=== PATIENT | male | born 1945 | race Caucasian/White ===

== ENCOUNTER 2017-03-06 16:18 | Inpatient (IN) | payer MEDICARE, BC ==
[~2017-03-06 16:18] MED LIST: Levofloxacin/Dextrose 5%-Water 750 MG in Premix Bag 1 BAG IV SCH
--- NOTE | 2017-03-06 16:49 | EDM.PDOC ---
ED HPI GENERAL MEDICAL PROBLEM - General Chief Complaint: Respiratory Problem Stated Complaint: RESPIRATORY ISSUES Time Seen by Provider: 03/06/17 16:30 Source of Information: Reports: Patient, Provider, RN Notes Reviewed - History of Present Illness INITIAL COMMENTS - FREE TEXT/NARRATIVE: 72 year old male comes in with cough, generalized weakness, dyspnea, hypoxia, bilat lower lobe pneumonia. He has been coughing for about 3 1/2 weeks, mostly nonprod. He was see at the clinic a short time ago by his regular provider Dr Cheney for the above sx. CXR is reported to show bilat lower lobe pneumonia. He is too ill to be treated at home. Sent here to get started on IV abx and arrange for admission to hospital. He does have hx of Htn. Hx of previous CVA. - Related Data Allergies Allergy/AdvReac Type Severity Reaction Status Date / Time No Known Allergies Allergy Verified 06/02/14 07:33 Home Meds: Home Meds Aspirin [Halfprin] 81 mg PO DAILY 03/06/17 [History] Lisinopril/Hydrochlorothiazide [Lisinopril-Hctz 20-25 mg Tab] 20 - 25 mg PO DAILY 03/06/17 [History] [place]-3 Fatty Acids/Fish Oil [[facility] Fish Oil 1,000 mg Softgel] 1,000 mg PO BID [History] amLODIPine [Norvasc] 5 mg PO DAILY 03/06/17 [History] atorvaSTATin [Lipitor] 40 mg PO ASDIRECTED 03/06/17 [History] ED ROS GENERAL - Review of Systems Review Of Systems: See Below Constitutional: Reports: Chills. Denies: Fever HEENT: Denies: Sinus Problem, Throat Pain Respiratory: Reports: Shortness of Breath, Cough, Sputum (scant) Cardiovascular: Reports: Chest Pain (with coughing) Endocrine: Reports: Fatigue GI/Abdominal: Reports: Decreased Appetite. Denies: Abdominal Pain, Nausea, Vomiting Musculoskeletal: Denies: Leg Pain Skin: Reports: No Symptoms Neurological: Reports: Dizziness ED EXAM, GENERAL - Physical Exam Exam: See Below General Appearance: Alert, Mild Distress, Other (Frequent nonproductive cough) Eye Exam: Bilateral Eye: PERRL Nose: Normal Inspection Throat/Mouth: Normal Inspection, Normal Oropharynx Head: Atraumatic. No: Facial Swelling Neck: Supple, Full Range of Motion. No: Lymphadenopathy (L), Lymphadenopathy (R ) Respiratory/Chest: Respiratory Distress, Rhonchi (Right base). No: Retractions Cardiovascular: Regular Rate, Rhythm GI/Abdominal: Soft, Non-Tender Extremities: Normal Inspection, Normal Range of Motion Neurological: Alert, Oriented, No Motor/Sensory Deficits Skin Exam: Warm, Dry, Normal Color Course - Vital Signs Last Recorded V/S: Last Vital Signs Temp 98.0 F 03/06/17 16:44 Pulse 104 H 03/06/17 16:44 Resp 24 H 03/06/17 16:44 BP 161/86 H 03/06/17 16:44 Pulse Ox 91 L 03/06/17 16:44 - Orders/Labs/Meds Orders: Active Orders 24 hr Category Date Time Status Peripheral IV Care [RC] . DIRECTED Care 03/06/17 17:07 Active CULTURE BLOOD [BC] Stat Lab 03/06/17 17:01 Ordered CULTURE BLOOD [BC] Stat Lab 03/06/17 17:07 Ordered Levofloxacin/Dextrose 5%-Water [Levaquin in D5W 750 MG/ Med 03/06/17 17:07 Active 150 ML] 750 mg Premix Bag 1 bag IV ONETIME Sodium Chloride 0.9% [Saline Flush] Med 03/06/17 17:06 Active 10 ml FLUSH ASDIRECTED PRN Peripheral IV Insertion Adult [OM.PC] Stat Oth 03/06/17 17:07 Ordered Medication Orders Levofloxacin/Dextrose 750 mg/ (Premix) 150 mls @ 100 mls/hr IV ONETIME ONE Stop: 03/06/17 18:36 Last Admin: 03/06/17 17:47 Dose: 100 mls/hr Sodium Chloride (Saline Flush) 10 ml FLUSH ASDIRECTED PRN PRN Reason: Keep Vein Open Last Admin: 03/06/17 17:48 Dose: 10 ml Meds: Medications Generic Name Dose Route Start Last Admin Trade Name Freq PRN Reason Stop Dose Admin Levofloxacin/Dextrose 750 mg/ 150 mls @ 100 mls/hr 03/06/17 17:07 03/06/17 17 :47 Premix IV 03/06/17 18:36 100 mls/hr ONETIME ONE Administration Sodium Chloride 10 ml 03/06/17 17:06 03/06/17 17:48 Saline Flush FLUSH 10 ml ASDIRECTED PRN Administration Keep Vein Open - Re-Assessments/Exams Free Text/Narrative Re-Assessment/Exam: 03/06/17 17:44awaiting 2nd blood culture, order for levaquin 750 mg IV is in. He will be admitted inpatient status. CXR shows primarily R lower perihilar infiltrate. Labs drawn at clinic not repeated at this time. WBC 11,300, 77 % seg, 6 % bands. Creatnine 1.1, BUN 28. Na 137, K+ 3.8, glucose 110. Sats were 87 to 89 % room air, 93 to 95 % with 02 at 2 L NC. Departure - Departure Time of Disposition: 17:45 Disposition: Home, Self-Care 01 Condition: Fair Clinical Impression: Pneumonia Qualifiers: Pneumonia type: due to unspecified organism Laterality: right Lung location: lower lobe of lung Qualified Code(s): J18.1 - Lobar pneumonia, unspecified organism - Discharge Information Referrals: Prudencio Cheney MD [Primary Care Provider] - Forms: ED Department Discharge ED Communication - Discussed Case With (1) Discussed Case With (1): Admitting Provider (Dr Lawrence, decision to admit at about 17:35.) - My Orders Last 24 Hours: My Active Orders 03/06/17 17:01 CULTURE BLOOD [BC] Stat 03/06/17 17:06 Sodium Chloride 0.9% [Saline Flush] 10 ml FLUSH ASDIRECTED PRN 03/06/17 17:07 Peripheral IV Care [RC] . DIRECTED CULTURE BLOOD [BC] Stat Levofloxacin/Dextrose 5%-Water [Levaquin in D5W 750 MG/150 ML] 750 mg Premix Bag 1 bag IV ONETIME Peripheral IV Insertion Adult [OM.PC] Stat - Assessment/Plan Last 24 Hours: My Active Orders 03/06/17 17:01 CULTURE BLOOD [BC] Stat 03/06/17 17:06 Sodium Chloride 0.9% [Saline Flush] 10 ml FLUSH ASDIRECTED PRN 03/06/17 17:07 Peripheral IV Care [RC] . DIRECTED CULTURE BLOOD [BC] Stat Levofloxacin/Dextrose 5%-Water [Levaquin in D5W 750 MG/150 ML] 750 mg Premix Bag 1 bag IV ONETIME Peripheral IV Insertion Adult [OM.PC] Stat
[2017-03-06] MEDS ORDERED: Sodium Chloride 0.9% 10 ML Syringe FLUSH PRN (17:06)
[2017-03-06] MEDS ORDERED: Levofloxacin/Dextrose 5%-Water 750 MG in Premix Bag 1 BAG IV ONE (17:07)
--- NOTE | 2017-03-06 18:23 | PCM.HP ---
H&P History of Present Illness - General Date of Service: 03/06/17 Admit Problem/Dx: Respiratory Distress Source of Information: Patient, Old Records, Provider, RN Notes Reviewed History Limitations: Reports: Respiratory Distress - History of Present Illness Initial Comments - Free Text/Narative: This is a 72-year-old elderly white male with past medical history of hypertension and hyperlipidemia who was initially seen at his primary care's office and was found to have bilateral lower lobe pneumonia on chest x-ray. Patient complains of nonproductive cough associated with dyspnea, hypoxia. and generalized weakness. His symptoms have been going on for 3.5 weeks now. He also reports having poor appetite. Patient was referred to the emergency department for further evaluation. Patient carries no history of heart or lung disease. He is not an active smoker. However he admits to routine alcohol use. His initial labs at the clinic shows a CBC remarkable for WBC of 11.3, hemoglobin of 13.1, hematocrit of 39.5, platelet of 549, segmented neutrophil absolute of 8.7, lymphocyte absolute of 0.7 and 6 Band %. His chemistry is remarkable for glucose of 110 and BUN of 28. No chest x-ray film or report available for review from the clinic. While he was in the emergency department, patient was observed with O2 sats ranging from 87- 89% on room air. He is being admitted for treatment of presumptive bilateral pneumonia. His code status is full. - Related Data Allergies/Adverse Reactions: Allergies Allergy/AdvReac Type Severity Reaction Status Date / Time No Known Allergies Allergy Verified 03/06/17 20:36 Home Medications: Home Meds Aspirin [Halfprin] 81 mg PO DAILY 03/06/17 [History] Lisinopril/Hydrochlorothiazide [Lisinopril-Hctz 20-25 mg Tab] 20 - 25 mg PO DAILY 03/06/17 [History] [place]-3 Fatty Acids/Fish Oil [[facility] Fish Oil 1,000 mg Softgel] 1,000 mg PO BID [History] amLODIPine [Norvasc] 5 mg PO DAILY 03/06/17 [History] atorvaSTATin [Lipitor] 40 mg PO QPM 03/06/17 [History] Past Medical History HEENT History: Reports: Impaired Vision Cardiovascular History: Reports: High Cholesterol, Hypertension Respiratory History: Reports: Pneumonia, Recurrent Musculoskeletal History: Reports: Other (See Below) Other Musculoskeletal History: left foot surgery x 4 - Past Surgical History HEENT Surgical History: Reports: None, Tonsillectomy Social & Family History - Tobacco Use Smoking Status *Q: Former Smoker Used Tobacco, but Quit: Yes Month Tobacco Last Used: 55 years ago - Caffeine Use Caffeine Use: Reports: Coffee - Recreational Drug Use Recreational Drug Use: No H&P Review of Systems - Review of Systems: Review Of Systems: See Below General: Reports: Chills, Fatigue, Decreased Appetite. Denies: Malaise, Weakness HEENT: Reports: No Symptoms. Denies: Ear Pain, Eye Pain, Headaches, Hearing Changes, Rhinitis, Post Nasal Drip, Sinus Congestion, Sore Throat, Visual Changes Pulmonary: Reports: Shortness of Breath, Cough, Sputum Cardiovascular: Reports: Chest Pain (associated with coughing). Denies: Palpitations, Dyspnea on Exertion, Orthopnea, Edema, Lightheadedness, Syncope, Claudication, Blood Pressure Problem Gastrointestinal: Denies: Abdominal Pain, Nausea, Vomiting Genitourinary: Reports: No Symptoms Musculoskeletal: Reports: No Symptoms Skin: Denies: Cyanosis, Jaundice, Mottled, Pallor, Diaphoresis, Bruising, Pruritis, Rash, Erythema, Change in Color Psychiatric: Denies: Confusion, Depression, Anxiety, Agitation, Cravings, Hallucinations, Suicidal Ideation Neurological: Reports: Dizziness. Denies: Headache, Numbness, Paresthesia, Pre- Existing Deficit, Seizure, Syncope, Tingling, Tremors, Trouble Speaking, Difficulty Walking, Weakness, Change in Speech, Gait Disturbance Hematologic/Lymphatic: Reports: No Symptoms Immunologic: Reports: No Symptoms Exam - Exam Exam: See Below - Vital Signs Vital Signs: Last Vital Signs Temp 36.7 C 03/06/17 16:44 Pulse 104 H 03/06/17 16:44 Resp 24 H 03/06/17 16:44 BP 161/86 H 03/06/17 16:44 Pulse Ox 91 L 03/06/17 16:44 Weight: 87.09 kg - Exam General: Alert, Oriented, Cooperative, Mild Distress HEENT: Conjunctiva Clear, EACs Clear, EOMI, Hearing Intact, Mucosa Moist & [place] , Nares Patent, Normal Nasal Septum, Posterior Pharynx Clear, TMs Clear, PERRLA. No: Rhinitis, Scleral Icterus Neck: Supple, Trachea Midline, Full Range of Motion. No: JVD Lungs: Normal Respiratory Effort, Rhonchi Cardiovascular: Regular Rate, Regular Rhythm GI/Abdominal Exam: Normal Bowel Sounds, Soft, Non-Tender, No Organomegaly, No Distention, No Abnormal Bruit, No Mass (Male) Exam: Deferred Rectal (Males) Exam: Deferred Back Exam: Normal Inspection, Decreased Range of Motion Extremities: Normal Inspection, Normal Range of Motion, Non-Tender, No Pedal Edema, Normal Capillary Refill Peripheral Pulses: 2+: Posterior Tibial (L), Posterior Tibial (R), Dorsalis Pedis (L), Dorsalis Pedis (R) Skin: Warm, Dry, Intact Neuro Extensive - Mental Status: Oriented x3, Normal Cognition, Memory Intact Neuro Extensive - Motor, Sensory, Reflexes: CN II-XII Intact, Normal Gait Psychiatric: Alert, Normal Affect, Normal Mood - Patient Data Result Diagrams: 03/06/17 17:30 03/06/17 17:30 *Q Meaningful Use (ADM) - VTE *Q VTE Criteria *Q: - Stroke *Q Stroke Criteria *Q: - AMI *Q AMI Criteria *Q: Problem List Initiated/Reviewed/Updated: Yes Orders Last 24hrs: Medication Orders Levofloxacin/Dextrose 750 mg/ (Premix) 150 mls @ 100 mls/hr IV ONETIME ONE Stop: 03/06/17 18:36 Last Admin: 03/06/17 17:47 Dose: 100 mls/hr Sodium Chloride (Saline Flush) 10 ml FLUSH ASDIRECTED PRN PRN Reason: Keep Vein Open Last Admin: 03/06/17 17:48 Dose: 10 ml Assessment/Plan Comment:: Assessment/Plan: Acute: Probable PNA - Right lower perihilar Infiltrate per ED Provider - No CXR report or film available for review - Recived IV Levaquin 750 mg x1 in ED - RT Care, Supplemental O2, Decongestant/Expectorant - Sputum Cx, Mycoplasma, and Strep Pneumonia Ag - IS and FV as directed - Serial CXR Mild Leukocytosis - WBC is 11.3 with 6% [facility] Clinic labs - CRP is 22 (done here) - Will monitor Mild Transaminitis - Likely from chronic ETOH Use - He was not able to quantify it for me - Monitor levels Thrombocytopenia - 549 in the clinic 503 here - Will monitor Clinical Dehydration - 2/2 poor oral intake - UA spec gravity is suggestive of considerably concentrated urine - IV hydration Chronic: HTN HLD Plan: Admit to Med-Surg Resume Home Meds Routine AM Labs PT/OT/RT SW/CM for d/c planning Additional orders as above Code status: 1
[2017-03-06] MEDS ORDERED: Morphine 2 MG/ML Syringe IVPUSH PRN (18:26)
[2017-03-06] MEDS ORDERED: Polyethylene Glycol 3350 Powder 17 GM Packet PO PRN (18:26)
[2017-03-06] MEDS ORDERED: LORazepam 2 MG/ML MDV IV PRN (18:26)
[2017-03-06] MEDS ORDERED: Ondansetron 4 MG/2 ML SDV IV PRN (18:26)
[2017-03-06] MEDS ORDERED: Temazepam 7.5 MG Cap PO PRN (18:26)
[2017-03-06] MEDS ORDERED: Acetaminophen/HYDROcodone 325-5 MG Tab PO PRN (18:26)
[2017-03-06] MEDS ORDERED: Promethazine 12.5 MG in Sodium Chloride 0.9% 50 ML IV PRN (18:26)
[2017-03-06] MEDS ORDERED: Bisacodyl 5 MG Tab PO PRN (18:26)
[2017-03-06] MEDS ORDERED: Acetaminophen 325 MG Tab PO PRN (18:26)
[2017-03-06] MEDS ORDERED: Docusate Sodium 100 MG Cap PO PRN (18:26)
[2017-03-06] MEDS ORDERED: LORazepam 2 MG/ML MDV IVPUSH PRN (18:33)
[2017-03-06] MEDS ORDERED: hydrALAZINE 20 MG/ML SDV IVPUSH PRN (18:33)
[2017-03-06] MEDS ORDERED: Metoprolol Tartrate 5 MG/5 ML SDV IVPUSH PRN (18:33)
[2017-03-06] MEDS ORDERED: guaiFENesin/Dextromethorphan 100-10 MG/5 ML Soln 5 ML Cup PO PRN (18:35)
[2017-03-06] MEDS ORDERED: Famotidine 20 MG/2 ML SDV IVPUSH ONE (18:36)
[2017-03-06] MEDS ORDERED: Pneumococcal Polyvalent-23 Vaccine 0.5 ML SDV IM ONE (20:57)
[2017-03-06] MEDS ORDERED: Diphtheria,Pertussis(Acell),Tetanus Vaccine 0.5 ML SDV IM ONE (20:57)
[2017-03-07] MEDS ORDERED: Famotidine 20 MG/2 ML SDV IVPUSH ONE (07:00)
[2017-03-07] MEDS ORDERED: Magnesium Oxide 400 MG Tab PO ONE (08:00)
[2017-03-07] MEDS: Rosuvastatin 10 MG Tab PO SCH (08:21)
[2017-03-07] MEDS: amLODIPine 5 MG Tab PO SCH (08:22)
[2017-03-07] MEDS: Aspirin 81 MG Tab.EC PO SCH (08:22)
[2017-03-07] MEDS: Hydrochlorothiazide 25 MG Tab PO SCH (08:22)
[2017-03-07] MEDS: Lisinopril 20 MG Tab PO SCH (08:23)
[2017-03-07] MEDS: Saccharomyces Boulardii (Probiotic) 250 MG Cap PO SCH (08:25)
--- NOTE | 2017-03-07 11:46 | PCM.PN ---
- General Info Date of Service: 03/07/17 Functional Status: Reports: Pain Controlled - Review of Systems General: Reports: Malaise HEENT: Reports: No Symptoms Pulmonary: Reports: Shortness of Breath, Cough. Denies: Sputum Cardiovascular: Reports: No Symptoms Gastrointestinal: Reports: Decreased Appetite, Diarrhea (yellow; occurs after eating). Denies: Nausea, Vomiting Musculoskeletal: Reports: No Symptoms Skin: Reports: No Symptoms Neurological: Reports: No Symptoms Psychiatric: Reports: No Symptoms Systems Review Comment:: He states that he started coughing and having shortness of breath 3 weeks ago. He denies sputum production. Shortly after he had a decreased appetite and diarrhea after he ate. The diarrhea was yellow and not foul smelling. It did not occur if he hadn't eaten. He had increased thirst and drank mostly water and juice. He states he lost 25 lbs in the last 3 weeks. - Patient Data Vitals - Most Recent: Last Vital Signs Temp 95.2 F L 03/07/17 07:34 Pulse 85 03/07/17 07:34 Resp 12 03/07/17 07:34 BP 129/78 03/07/17 08:23 Pulse Ox 92 L 03/07/17 10:30 Weight - Most Recent: 185 lb 12.8 oz I&O - Last 24 Hours: Intake & Output 03/06/17 03/07/17 03/07/17 22:59 06:59 14:59 Intake Total 100 240 Output Total 320 Balance -220 240 Lab Results Last 24 Hours: Laboratory Results - last 24 hr 03/06/17 03/07/17 03/07/17 Range/Units 19:37 06:05 06:05 WBC 8.84 (4.23-9.07) K/mm3 RBC 3.70 L (4.63-6.08) M/mm3 Hgb 10.7 L (13.7-17.5) gm/L Hct 32.6 L (40.1-51.0) % MCV 88.1 (79.0-92.2) fl MCH 28.9 (25.7-32.2) pg MCHC 32.8 (32.2-35.5) g/dl RDW Std Deviation 44.3 H (35.1-43.9) fL Plt Count 478 H (163-337) K/mm3 MPV 9.3 L (9.4-12.3) fl Neut % (Auto) 72.6 H (34.0-67.9) % Lymph % (Auto) 14.7 L (21.8-53.1) % [place] % (Auto) 7.1 (5.3-12.2) % Eos % (Auto) 4.4 (0.8-7.0) Baso % (Auto) 0.1 (0.1-1.2) % Neut # (Auto) 6.41 H (1.78-5.38) K/mm3 Lymph # (Auto) 1.30 L (1.32-3.57) K/mm3 [place] # (Auto) 0.63 (0.30-0.82) K/mm3 Eos # (Auto) 0.39 (0.04-0.54) K/mm3 Baso # (Auto) 0.01 (0.01-0.08) K/mm3 Magnesium 1.7 L (1.8-2.4) mg/dl GGT 139 H (15-85) U/L C-Reactive Protein 17.0 H* (<1.0) mg/dL Urine Color Dark yellow (Yellow) Urine Appearance Clear (Clear) Urine pH 5.5 (5.0-8.0) Ur Specific [place] > or = 1.030 (1.005-1.030) Urine Protein 1+ H (Negative) Urine Glucose (UA) Negative (Negative) Urine Ketones Negative (Negative) Urine Occult Blood Negative (Negative) Urine Nitrite Negative (Negative) Urine Bilirubin 1+ H (Negative) Urine Urobilinogen 1.0 (0.2-1.0) Ur Leukocyte Esterase Negative (Negative) Urine RBC 0-5 (0-5) /hpf Urine WBC 0-5 (0-5) /hpf Ur Epithelial Cells 0-5 (0-5) /hpf Urine Bacteria Moderate H (FEW) /hpf Urine Mucus Moderate H (FEW) /hpf Dru Results Last 24 Hours: Microbiology 03/06/17 21:47 Influenza Type A Antigen Screen - Final Nasal, Right NEGATIVE INFLUENZA A VIRUS AG Influenza Type B Antigen Screen - Final NEGATIVE INFLUENZA B VIRUS AG Med Orders - Current: Current Medications Acetaminophen (Tylenol) 650 mg PO Q4H PRN PRN Reason: Pain (Mild 1-3)/fever Hydrocodone Bitart/Acetaminophen ([place] 325-5 Mg) 1 tab PO Q4H PRN PRN Reason: Pain (moderate 4-6) Albuterol/Ipratropium (Duoneb 3.0-0.5 Mg/3 Ml) 3 ml NEB Q4H PRN PRN Reason: Shortness Of Breath/wheezing Amlodipine Besylate (Norvasc) 5 mg PO DAILY [facility] Last Admin: 03/07/17 08:22 Dose: 5 mg Aspirin (Halfprin) 81 mg PO DAILY [facility] Last Admin: 03/07/17 08:22 Dose: 81 mg Bisacodyl (Dulcolax) 5 mg PO DAILY PRN PRN Reason: Constipation Docusate Sodium (Colace) 100 mg PO BID PRN PRN Reason: Constipation Famotidine (Pepcid) 20 mg PO BID [facility] Guaifenesin/Phenylephrine HCl (Robitussin Dm) 10 ml PO Q4H PRN PRN Reason: Cough Last Admin: 03/06/17 19:26 Dose: 10 ml Hydralazine HCl (Apresoline) 20 mg IVPUSH Q4H PRN PRN Reason: Hypertension Hydrochlorothiazide (Hydrochlorothiazide) 25 mg PO DAILY [facility] Last Admin: 03/07/17 08:22 Dose: 25 mg Promethazine HCl 12.5 mg/ (Sodium Chloride) 50.5 mls @ 100 mls/hr IV Q6H PRN PRN Reason: Nausea/Vomiting Levofloxacin/Dextrose 750 mg/ (Premix) 150 mls @ 100 mls/hr IV Q24H [facility] Lisinopril (Prinivil) 20 mg PO DAILY [facility] Last Admin: 03/07/17 08:23 Dose: 20 mg Lorazepam (Ativan) 0.5 mg IV Q6H PRN PRN Reason: Anxiety Lorazepam (Ativan) 2 mg IVPUSH Q4H PRN PRN Reason: Seizures Magnesium Sulfate (Pharmacy To Dose - Magnesium Replacement) 0 dose .XX ASDIRECTED PRN PRN Reason: RX TO WATCH MAG LEVELS Metoprolol Tartrate (Lopressor) 5 mg IVPUSH Q4H PRN PRN Reason: Tachycardia Morphine Sulfate (Morphine) 1 mg IVPUSH Q4H PRN PRN Reason: Other Stop: 03/07/17 18:28 Ondansetron HCl (Zofran) 4 mg IV Q6H PRN PRN Reason: Nausea/Vomiting Polyethylene Glycol (Miralax) 17 gm PO DAILY PRN PRN Reason: Constipation Potassium Chloride (Pharmacy To Dose - Potassium Replacement) 0 dose .XX ASDIRECTED PRN PRN Reason: RX TO WATCH K LEVELS Rosuvastatin Calcium (Crestor) 10 mg PO DAILY [facility] Last Admin: 03/07/17 08:21 Dose: 10 mg Saccharomyces Boulardii (Florastor) 500 mg PO DAILY [facility] Last Admin: 03/07/17 08:25 Dose: 500 mg Senna/Docusate Sodium (Senna Plus) 1 tab PO BID PRN PRN Reason: Constipation Sodium Chloride (Saline Flush) 10 ml FLUSH ASDIRECTED PRN PRN Reason: Keep Vein Open Last Admin: 03/06/17 17:48 Dose: 10 ml Temazepam (Restoril) 7.5 mg PO BEDTIME PRN PRN Reason: Sleep Discontinued Medications Diphtheria/Tetanus/Acell Pertussis (Adacel) 0.5 ml IM .ONCE ONE Stop: 03/06/17 20:58 Famotidine (Pepcid) 20 mg IVPUSH DAILY ONE Stop: 03/07/17 07:01 Last Admin: 03/07/17 06:54 Dose: 20 mg Famotidine (Pepcid) 20 mg IVPUSH ONETIME ONE Stop: 03/06/17 18:37 Last Admin: 03/06/17 19:26 Dose: 20 mg Levofloxacin/Dextrose 750 mg/ (Premix) 150 mls @ 100 mls/hr IV ONETIME ONE Stop: 03/06/17 18:36 Last Admin: 03/06/17 17:47 Dose: 100 mls/hr Levofloxacin/Dextrose 750 mg/ (Premix) 150 mls @ 100 mls/hr IV Q24H [facility] Last Admin: 03/06/17 22:32 Dose: Not Given Magnesium Oxide (Magnesium Oxide) 800 mg PO ONETIME ONE Stop: 03/07/17 08:01 Last Admin: 03/07/17 08:21 Dose: 800 mg Pneumococcal Polyvalent Vaccine (Pneumovax 23) 0.5 ml IM .ONCE ONE Stop: 03/06/17 20:58 - Exam Quality Assessment: Supplemental Oxygen General: Alert, Oriented, Cooperative HEENT: Pupils Equal, Pupils Reactive, EOMI, Mucous Membr. Moist/[place] Neck: Supple Lungs: Crackles (mild crackles in lower lobes bilaterally) Cardiovascular: Regular Rate, Regular Rhythm GI/Abdominal Exam: Normal Bowel Sounds, Soft, Non-Tender, No Organomegaly, No Distention, No Abnormal Bruit, No Mass (Male) Exam: Deferred Extremities: Normal Inspection, Normal Range of Motion, Non-Tender, No Pedal Edema, Normal Capillary Refill Skin: Warm, Dry, Intact Neurological: No New Focal Deficit Psy/Mental Status: Alert, Normal Affect, Normal Mood Physical Findings Comments:: He is coughing during the exam. His lungs have mild crackles bilaterally in lower lobes. His breathing seems mildly labored. He is able to speak without being short of breath. Abdominal exam was normal. - Problem List Review Problem List Initiated/Reviewed/Updated: Yes - Assessment Assessment:: 1) Pneumonia bilaterally 2) Diarrhea for 3 weeks 3) Self reported weight loss 4) Transaminitis probably secondary to ETOH use - Plan Plan:: Plan: Continue on levofloxacin for pneumonia Collect sputum sample to test for organism and susceptibility Collect stool sample to test for organisms Encourage oral intake of fluids Routine care
--- NOTE | 2017-03-07 14:34 | PCM.PN ---
- General Info Date of Service: 03/07/17 Admission Dx/Problem (Free Text): Respiratory Distress Subjective Update: Follow Up Functional Status: Reports: Pain Controlled, Tolerating Diet, Ambulating, Urinating - Review of Systems General: Denies: Fever, Weakness, Fatigue, Malaise, Chills HEENT: Reports: No Symptoms Pulmonary: Reports: Cough. Denies: Shortness of Breath, Sputum Cardiovascular: Denies: Chest Pain, Dyspnea on Exertion Gastrointestinal: Denies: Abdominal Pain, Nausea, Vomiting Genitourinary: Reports: No Symptoms Musculoskeletal: Reports: No Symptoms Skin: Denies: Rash Neurological: Denies: Confusion, Difficulty Walking, Weakness, Gait Disturbance Psychiatric: Denies: No Symptoms, Depression, Anxiety, Hallucinations Systems Review Comment:: No overnight or acute issues. He feel much better this am. He is still not able to cough. His AM labs looks better. Leukocytosis resolved and CPR is down from 17 to 22. UA and Influenza screening are both negative. - Patient Data Vitals - Most Recent: Last Vital Signs Temp 36.1 C 03/07/17 12:02 Pulse 82 03/07/17 12:02 Resp 20 03/07/17 12:02 BP 102/48 L 03/07/17 12:02 Pulse Ox 94 L 03/07/17 12:02 Weight - Most Recent: 84.277 kg I&O - Last 24 Hours: Intake & Output 03/06/17 03/07/17 03/07/17 22:59 06:59 14:59 Intake Total 100 240 Output Total 320 Balance -220 240 Lab Results Last 24 Hours: Laboratory Results - last 24 hr 03/06/17 03/07/17 03/07/17 Range/Units 19:37 06:05 06:05 WBC 8.84 (4.23-9.07) K/mm3 RBC 3.70 L (4.63-6.08) M/mm3 Hgb 10.7 L (13.7-17.5) gm/L Hct 32.6 L (40.1-51.0) % MCV 88.1 (79.0-92.2) fl MCH 28.9 (25.7-32.2) pg MCHC 32.8 (32.2-35.5) g/dl RDW Std Deviation 44.3 H (35.1-43.9) fL Plt Count 478 H (163-337) K/mm3 MPV 9.3 L (9.4-12.3) fl Neut % (Auto) 72.6 H (34.0-67.9) % Lymph % (Auto) 14.7 L (21.8-53.1) % Reeves % (Auto) 7.1 (5.3-12.2) % Eos % (Auto) 4.4 (0.8-7.0) Baso % (Auto) 0.1 (0.1-1.2) % Neut # (Auto) 6.41 H (1.78-5.38) K/mm3 Lymph # (Auto) 1.30 L (1.32-3.57) K/mm3 Reeves # (Auto) 0.63 (0.30-0.82) K/mm3 Eos # (Auto) 0.39 (0.04-0.54) K/mm3 Baso # (Auto) 0.01 (0.01-0.08) K/mm3 Magnesium 1.7 L (1.8-2.4) mg/dl GGT 139 H (15-85) U/L C-Reactive Protein 17.0 H* (<1.0) mg/dL Urine Color Dark yellow (Yellow) Urine Appearance Clear (Clear) Urine pH 5.5 (5.0-8.0) Ur Specific [place] > or = 1.030 (1.005-1.030) Urine Protein 1+ H (Negative) Urine Glucose (UA) Negative (Negative) Urine Ketones Negative (Negative) Urine Occult Blood Negative (Negative) Urine Nitrite Negative (Negative) Urine Bilirubin 1+ H (Negative) Urine Urobilinogen 1.0 (0.2-1.0) Ur Leukocyte Esterase Negative (Negative) Urine RBC 0-5 (0-5) /hpf Urine WBC 0-5 (0-5) /hpf Ur Epithelial Cells 0-5 (0-5) /hpf Urine Bacteria Moderate H (FEW) /hpf Urine Mucus Moderate H (FEW) /hpf Dru Results Last 24 Hours: Microbiology 03/06/17 18:30 Urine Culture - Preliminary Urine, Voided 03/06/17 21:47 Influenza Type A Antigen Screen - Final Nasal, Right NEGATIVE INFLUENZA A VIRUS AG Influenza Type B Antigen Screen - Final NEGATIVE INFLUENZA B VIRUS AG Med Orders - Current: Current Medications Acetaminophen (Tylenol) 650 mg PO Q4H PRN PRN Reason: Pain (Mild 1-3)/fever Hydrocodone Bitart/Acetaminophen ([place] 325-5 Mg) 1 tab PO Q4H PRN PRN Reason: Pain (moderate 4-6) Albuterol/Ipratropium (Duoneb 3.0-0.5 Mg/3 Ml) 3 ml NEB Q4H PRN PRN Reason: Shortness Of Breath/wheezing Amlodipine Besylate (Norvasc) 5 mg PO DAILY [facility] Last Admin: 03/07/17 08:22 Dose: 5 mg Aspirin (Halfprin) 81 mg PO DAILY [facility] Last Admin: 03/07/17 08:22 Dose: 81 mg Bisacodyl (Dulcolax) 5 mg PO DAILY PRN PRN Reason: Constipation Docusate Sodium (Colace) 100 mg PO BID PRN PRN Reason: Constipation Famotidine (Pepcid) 20 mg PO BID [facility] Guaifenesin/Phenylephrine HCl (Robitussin Dm) 10 ml PO Q4H PRN PRN Reason: Cough Last Admin: 03/06/17 19:26 Dose: 10 ml Hydralazine HCl (Apresoline) 20 mg IVPUSH Q4H PRN PRN Reason: Hypertension Hydrochlorothiazide (Hydrochlorothiazide) 25 mg PO DAILY [facility] Last Admin: 03/07/17 08:22 Dose: 25 mg Promethazine HCl 12.5 mg/ (Sodium Chloride) 50.5 mls @ 100 mls/hr IV Q6H PRN PRN Reason: Nausea/Vomiting Levofloxacin/Dextrose 750 mg/ (Premix) 150 mls @ 100 mls/hr IV Q24H [facility] Lisinopril (Prinivil) 20 mg PO DAILY [facility] Last Admin: 03/07/17 08:23 Dose: 20 mg Lorazepam (Ativan) 0.5 mg IV Q6H PRN PRN Reason: Anxiety Lorazepam (Ativan) 2 mg IVPUSH Q4H PRN PRN Reason: Seizures Magnesium Sulfate (Pharmacy To Dose - Magnesium Replacement) 0 dose .XX ASDIRECTED PRN PRN Reason: RX TO WATCH MAG LEVELS Metoprolol Tartrate (Lopressor) 5 mg IVPUSH Q4H PRN PRN Reason: Tachycardia Morphine Sulfate (Morphine) 1 mg IVPUSH Q4H PRN PRN Reason: Other Stop: 03/07/17 18:28 Ondansetron HCl (Zofran) 4 mg IV Q6H PRN PRN Reason: Nausea/Vomiting Polyethylene Glycol (Miralax) 17 gm PO DAILY PRN PRN Reason: Constipation Potassium Chloride (Pharmacy To Dose - Potassium Replacement) 0 dose .XX ASDIRECTED PRN PRN Reason: RX TO WATCH K LEVELS Rosuvastatin Calcium (Crestor) 10 mg PO DAILY [facility] Last Admin: 03/07/17 08:21 Dose: 10 mg Saccharomyces Boulardii (Florastor) 500 mg PO DAILY [facility] Last Admin: 03/07/17 08:25 Dose: 500 mg Senna/Docusate Sodium (Senna Plus) 1 tab PO BID PRN PRN Reason: Constipation Sodium Chloride (Saline Flush) 10 ml FLUSH ASDIRECTED PRN PRN Reason: Keep Vein Open Last Admin: 03/06/17 17:48 Dose: 10 ml Temazepam (Restoril) 7.5 mg PO BEDTIME PRN PRN Reason: Sleep Discontinued Medications Diphtheria/Tetanus/Acell Pertussis (Adacel) 0.5 ml IM .ONCE ONE Stop: 03/06/17 20:58 Famotidine (Pepcid) 20 mg IVPUSH DAILY ONE Stop: 03/07/17 07:01 Last Admin: 03/07/17 06:54 Dose: 20 mg Famotidine (Pepcid) 20 mg IVPUSH ONETIME ONE Stop: 03/06/17 18:37 Last Admin: 03/06/17 19:26 Dose: 20 mg Levofloxacin/Dextrose 750 mg/ (Premix) 150 mls @ 100 mls/hr IV ONETIME ONE Stop: 03/06/17 18:36 Last Admin: 03/06/17 17:47 Dose: 100 mls/hr Levofloxacin/Dextrose 750 mg/ (Premix) 150 mls @ 100 mls/hr IV Q24H [facility] Last Admin: 03/06/17 22:32 Dose: Not Given Magnesium Oxide (Magnesium Oxide) 800 mg PO ONETIME ONE Stop: 03/07/17 08:01 Last Admin: 03/07/17 08:21 Dose: 800 mg Pneumococcal Polyvalent Vaccine (Pneumovax 23) 0.5 ml IM .ONCE ONE Stop: 03/06/17 20:58 - Exam Quality Assessment: No: Supplemental Oxygen General: Alert, Oriented, Cooperative, No Acute Distress HEENT: Pupils Equal, Pupils Reactive, EOMI, Mucous Membr. Moist/[place] Neck: Supple, Trachea Midline, No JVD Lungs: Clear to Auscultation, Normal Respiratory Effort Cardiovascular: Regular Rate, Regular Rhythm GI/Abdominal Exam: Normal Bowel Sounds, Soft, Non-Tender, No Organomegaly, No Distention, No Abnormal Bruit, No Mass (Male) Exam: Deferred Back Exam: Normal Inspection, Decreased Range of Motion Extremities: Normal Inspection, Normal Range of Motion, Non-Tender, No Pedal Edema, Normal Capillary Refill Peripheral Pulses: 2+: Dorsalis Pedis (L), Dorsalis Pedis (R) Skin: Warm, Intact Wound/Incisions: Healing Well Neurological: No New Focal Deficit Psy/Mental Status: Alert, Normal Affect, Normal Mood - Problem List Review Problem List Initiated/Reviewed/Updated: Yes - My Orders Last 24 Hours: My Active Orders 03/06/17 18:26 Height and Weight [RC] 04 Oxygen Therapy [RC] PRN Up With Assistance [RC] QSHIFT Up ad [place] [RC] QSHIFT VTE/DVT Education [RC] 10,22 Acetaminophen [Tylenol] 650 mg PO Q4H PRN Acetaminophen/HYDROcodone [[place] 325-5 MG] 1 tab PO Q4H PRN Albuterol/Ipratropium [DuoNeb 3.0-0.5 MG/3 ML] 3 ml NEB Q4H PRN Bisacodyl [Dulcolax] 5 mg PO DAILY PRN Docusate Sodium [Colace] 100 mg PO BID PRN Docusate Sodium/Sennosides [Senna Plus] 1 tab PO BID PRN LORazepam [Ativan] 0.5 mg IV Q6H PRN Morphine 1 mg IVPUSH Q4H PRN Ondansetron [Zofran] 4 mg IV Q6H PRN Polyethylene Glycol 3350 [MiraLAX] 17 gm PO DAILY PRN Promethazine [Phenergan] 12.5 mg Sodium Chloride 0.9% [Normal Saline] 50 ml IV Q6H Temazepam [Restoril] 7.5 mg PO BEDTIME PRN Resuscitation Status Routine 03/06/17 18:27 Intake and Output [RC] 04,16 Pulse Oximetry [RC] PRN Sequential Compression Device [OM.PC] Per Unit Routine 03/06/17 18:28 Antiembolic Devices [RC] 10,03/06/17 18:30 RT Aerosol Therapy [RC] .PRN Consult to Case Management [CONS] Routine Consult to Dredge Pipeman [CONS] Routine Consult to Spiritual Care [CONS] Routine OT Evaluation and Treatment [CONS] Routine PT Evaluation and Treatment [CONS] Routine Respiratory Care Assess and Treatment [CONS] Routine CULTURE URINE [RM] Stat 03/06/17 18:33 LORazepam [Ativan] 2 mg IVPUSH Q4H PRN Metoprolol Tartrate [Lopressor] 5 mg IVPUSH Q4H PRN hydrALAZINE [Apresoline] 20 mg IVPUSH Q4H PRN 03/06/17 18:34 CULTURE SPUTUM + SMEAR [RM] Stat 03/06/17 18:35 Dextromethorphan/guaiFENesin [Robitussin DM] 10 ml PO Q4H PRN 03/06/17 18:37 Incentive Spirometry [RT Incentive Spirometry] [RC] ASDIRECTED 03/06/17 18:45 Magnesium Rep Pharmacy to Dose [Pharmacy to Dose - Magnesium Replacement] 0 dose .XX ASDIRECTED PRN Potassium Rep Pharmacy to Dose [Pharmacy to Dose - Potassium Replacement] 0 dose .XX ASDIRECTED PRN 03/06/17 19:30 STREP PNEUMONIAE ANTIGEN [MREF] Stat 03/06/17 20:57 Vaccines to be Administered [RC] PER UNIT ROUTINE 03/06/17 Dinner Regular Diet [DIET] 03/07/17 09:00 Aspirin [Halfprin] 81 mg PO DAILY Hydrochlorothiazide 25 mg PO DAILY Lisinopril [Prinivil] 20 mg PO DAILY Rosuvastatin [Crestor] 10 mg PO DAILY Saccharomyces Boulardii [Florastor] 500 mg PO DAILY amLODIPine [Norvasc] 5 mg PO DAILY 03/07/17 14:02 Flutter Valve Therapy [RT Chest Physiotherapy] [RC] ASDIRECTED 03/07/17 17:00 Levofloxacin/Dextrose 5%-Water [Levaquin in D5W 750 MG/150 ML] 750 mg Premix Bag 1 bag IV Q24H 03/07/17 21:00 Famotidine [Pepcid] 20 mg PO BID 03/08/17 05:11 Chest 2V [CR] AM C-REACTIVE PROTEIN [CHEM] AM CBC WITH AUTO DIFF [HEME] AM MAGNESIUM [CHEM] AM 03/09/17 05:11 C-REACTIVE PROTEIN [CHEM] AM CBC WITH AUTO DIFF [HEME] AM MAGNESIUM [CHEM] AM 03/10/17 05:11 C-REACTIVE PROTEIN [CHEM] AM CBC WITH AUTO DIFF [HEME] AM MAGNESIUM [CHEM] AM - Assessment Assessment:: Assessment/Plan: Acute: Bibasilar PNA - Right lower perihilar Infiltrate per ED Provider - CXR report from the clinic reads: Bilateral lower lobe pneumonia - Continue IV Levaquin 750 mg x1 in ED - RT Care, Supplemental O2, Decongestant/Expectorant-adjusted - Sputum Cx, and Strep Pneumonia Ag-pending - Mycoplasma Ag-negative - IS and FV as directed - Follow CXR in AM Mild Transaminitis - Likely from chronic ETOH Use - He was not able to quantify it for me - Follow up level in AM Thrombocytopenia, Improving - 549 in the clinic 503--> 478 now - Will monitor Hypomagnesemia - Mg 1.7 - Inadequate intake - Pharmacy to replete and monitor Weight Loss - Varying degree of weight loss - Told me 5 lbs in 3 weeks, told dietitian 6 lbs weight loss, told nursing 10 -15 lbs and told Med-student 25 lbs - Defer additional work up outpatient Resolved: Clinical Dehydration - 2/2 poor oral intake - UA spec gravity is suggestive of considerably concentrated urine - IV hydration Mild Leukocytosis - WBC is 11.3 with 6% [facility] labs - CRP is 22 (done here) - Will monitor Chronic: HTN HLD Stroke - Plan Plan:: Plan: He looks much better Resume Home Meds Routine AM Labs Continue PT/OT/RT FV as directed Honey and lemon tea or drink Mucinex 1200 mg po BID, first dose now Tessalon Perles 200 mg po BID, first dose now / for d/c planning Additional orders as above Code status: 1
[2017-03-07] MEDS ORDERED: guaiFENesin 600 MG Tab.ER PO ONE (16:24)
[2017-03-07] MEDS ORDERED: Benzonatate 100 MG Cap PO ONE (16:24)
[2017-03-07] MEDS: Levofloxacin/Dextrose 5%-Water 750 MG in Premix Bag 1 BAG IV SCH (18:03)
[2017-03-07] MEDS: Benzonatate 100 MG Cap PO SCH ×2 (18:57→20:03)
[2017-03-07] MEDS: Famotidine 20 MG Tab PO SCH (20:03)
[2017-03-07] MEDS: guaiFENesin 600 MG Tab.ER PO SCH (20:03)
[2017-03-08] MEDS ORDERED: Codeine/guaiFENesin 100-10 MG/5 ML Syrup 5 ML Cup PO ONE (07:15)
[2017-03-08] MEDS: Hydrochlorothiazide 25 MG Tab PO SCH (08:39)
[2017-03-08] MEDS: Aspirin 81 MG Tab.EC PO SCH (08:39)
[2017-03-08] MEDS: Rosuvastatin 10 MG Tab PO SCH (08:39)
[2017-03-08] MEDS: Saccharomyces Boulardii (Probiotic) 250 MG Cap PO SCH (08:39)
[2017-03-08] MEDS: amLODIPine 5 MG Tab PO SCH (08:40)
[2017-03-08] MEDS: Famotidine 20 MG Tab PO SCH ×2 (08:40→20:52)
[2017-03-08] MEDS: Lisinopril 20 MG Tab PO SCH (08:40)
[2017-03-08] MEDS: guaiFENesin 600 MG Tab.ER PO SCH ×2 (08:40→20:53)
[2017-03-08] MEDS: Benzonatate 100 MG Cap PO SCH ×2 (08:41→20:53)
--- NOTE | 2017-03-08 10:56 | CR ---
Chest: Two views of the chest are obtained. Consolidation is seen within portions of the right upper and right lower lobe. Left perihilar markings are slightly increased. Heart size and mediastinum are within normal limits. Bony structures appear within normal limits for the patient's age. Impression: 1. Mild left-sided bronchitis with right upper and right lower lobe pneumonia. Diagnostic code #3
[2017-03-08] MEDS: Albuterol/Ipratropium 3.0-0.5 MG/3 ML Neb Soln NEB PRN ×2 (14:14→20:57)
--- NOTE | 2017-03-08 14:50 | PCM.PN ---
- General Info Date of Service: 03/08/17 Admission Dx/Problem (Free Text): Respiratory Distress Subjective Update: Follow Up Functional Status: Reports: Pain Controlled, Tolerating Diet, Ambulating, Urinating, Incentive Spirometry. Denies: New Symptoms - Review of Systems General: Reports: No Symptoms. Denies: Fever, Weakness, Malaise, Chills HEENT: Reports: No Symptoms Pulmonary: Reports: Cough, Sputum, Wheezing. Denies: Shortness of Breath, Pleuritic Chest Pain Cardiovascular: Reports: No Symptoms Gastrointestinal: Reports: No Symptoms Genitourinary: Reports: No Symptoms Musculoskeletal: Reports: No Symptoms Skin: Reports: No Symptoms Neurological: Reports: No Symptoms Psychiatric: Reports: No Symptoms Systems Review Comment:: Patient reports his only complaint is his cough. He reports feeling like there is more congestion however he is unable to cough it up. Discussed with patient how this is often a sign of improvement as the congestion is loosening. His CRP is trending downward. He does have a slightly elevated white count today. He reports using incentive spirometry and Acapella. He states the Acapella seems to really help. - Patient Data Vitals - Most Recent: Last Vital Signs Temp 98.4 F 03/08/17 11:50 Pulse 88 03/08/17 11:52 Resp 18 03/08/17 11:50 BP 104/59 L 03/08/17 11:52 Pulse Ox 90 L 03/08/17 14:14 Weight - Most Recent: 186 lb 6.4 oz I&O - Last 24 Hours: Intake & Output 03/07/17 03/08/17 03/08/17 22:59 06:59 14:59 Intake Total 860 375 600 Output Total 850 350 Balance 10 25 600 Lab Results Last 24 Hours: Laboratory Results - last 24 hr 03/08/17 03/08/17 Range/Units 05:53 05:53 WBC 9.45 H (4.23-9.07) K/mm3 RBC 3.90 L (4.63-6.08) M/mm3 Hgb 11.4 L (13.7-17.5) gm/L Hct 34.6 L (40.1-51.0) % MCV 88.7 (79.0-92.2) fl MCH 29.2 (25.7-32.2) pg MCHC 32.9 (32.2-35.5) g/dl RDW Std Deviation 44.7 H (35.1-43.9) fL Plt Count 443 H (163-337) K/mm3 MPV 9.7 (9.4-12.3) fl Neut % (Auto) 72.5 H (34.0-67.9) % Lymph % (Auto) 13.9 L (21.8-53.1) % [place] % (Auto) 7.7 (5.3-12.2) % Eos % (Auto) 4.3 (0.8-7.0) Baso % (Auto) 0.2 (0.1-1.2) % Neut # (Auto) 6.85 H (1.78-5.38) K/mm3 Lymph # (Auto) 1.31 L (1.32-3.57) K/mm3 [place] # (Auto) 0.73 (0.30-0.82) K/mm3 Eos # (Auto) 0.41 (0.04-0.54) K/mm3 Baso # (Auto) 0.02 (0.01-0.08) K/mm3 Manual Slide Review Normal smear Sodium 136 (136-145) mEq/L Potassium 4.1 (3.5-5.1) mEq/L Chloride 101 (98-107) mEq/L Carbon Dioxide 25 (21-32) mEq/L Anion Gap 14.1 (5-15) BUN 31 H (7-18) mg/dL Creatinine 1.1 (0.7-1.3) mg/dL Est Cr Clr Drug Dosing 64.68 mL/min Estimated GFR (MDRD) > 60 (>60) mL/min BUN/Creatinine Ratio 28.2 H (14-18) Glucose 110 (80-115) mg/dL Calcium 9.0 (8.5-10.1) mg/dL Magnesium 1.8 (1.8-2.4) mg/dl Total Bilirubin 0.3 (0.2-1.0) mg/dL AST 52 H (15-37) U/L ALT 87 H (16-63) U/L Alkaline Phosphatase 219 H (46-116) U/L C-Reactive Protein 12.3 H* (<1.0) mg/dL Total Protein 6.6 (6.4-8.2) g/dl Albumin 1.8 L (3.4-5.0) g/dl Globulin 4.8 gm/dL Albumin/Globulin Ratio 0.4 L (1-2) Dru Results Last 24 Hours: Microbiology 03/06/17 18:30 Urine Culture - Final Urine, Voided NO GROWTH AFTER 2 DAYS 03/07/17 02:50 Streptococcus pneumoniae Antigen (M - Final Urine - Ureter, Unspecified Med Orders - Current: Current Medications Acetaminophen (Tylenol) 650 mg PO Q4H PRN PRN Reason: Pain (Mild 1-3)/fever Hydrocodone Bitart/Acetaminophen ([place] 325-5 Mg) 1 tab PO Q4H PRN PRN Reason: Pain (moderate 4-6) Albuterol/Ipratropium (Duoneb 3.0-0.5 Mg/3 Ml) 3 ml NEB Q4H PRN PRN Reason: Shortness Of Breath/wheezing Last Admin: 03/08/17 14:14 Dose: 3 ml Amlodipine Besylate (Norvasc) 5 mg PO DAILY ON [facility] Last Admin: 03/08/17 08:40 Dose: 5 mg Aspirin (Halfprin) 81 mg PO DAILY ON [facility] Last Admin: 03/08/17 08:39 Dose: 81 mg Benzonatate (Tessalon Perles) 200 mg PO BID [facility] Last Admin: 03/08/17 08:41 Dose: 200 mg Bisacodyl (Dulcolax) 5 mg PO DAILY PRN PRN Reason: Constipation Docusate Sodium (Colace) 100 mg PO BID PRN PRN Reason: Constipation Famotidine (Pepcid) 20 mg PO BID ON [facility] Last Admin: 03/08/17 08:40 Dose: 20 mg Guaifenesin (Mucinex) 1,200 mg PO BID ON [facility] Last Admin: 03/08/17 08:40 Dose: 1,200 mg Guaifenesin/Codeine Phosphate (Robitussin Ac) 5 ml PO Q4H PRN PRN Reason: Cough Hydralazine HCl (Apresoline) 20 mg IVPUSH Q4H PRN PRN Reason: Hypertension Hydrochlorothiazide (Hydrochlorothiazide) 25 mg PO DAILY ON [facility] Last Admin: 03/08/17 08:39 Dose: 25 mg Promethazine HCl 12.5 mg/ (Sodium Chloride) 50.5 mls @ 100 mls/hr IV Q6H PRN PRN Reason: Nausea/Vomiting Levofloxacin/Dextrose 750 mg/ (Premix) 150 mls @ 100 mls/hr IV Q24H ON [facility] Last Admin: 03/07/17 18:03 Dose: 100 mls/hr Lisinopril (Prinivil) 20 mg PO DAILY [facility] Last Admin: 03/08/17 08:40 Dose: 20 mg Lorazepam (Ativan) 0.5 mg IV Q6H PRN PRN Reason: Anxiety Lorazepam (Ativan) 2 mg IVPUSH Q4H PRN PRN Reason: Seizures Magnesium Sulfate (Pharmacy To Dose - Magnesium Replacement) 0 dose .XX ASDIRECTED PRN PRN Reason: RX TO WATCH MAG LEVELS Metoprolol Tartrate (Lopressor) 5 mg IVPUSH Q4H PRN PRN Reason: Tachycardia Ondansetron HCl (Zofran) 4 mg IV Q6H PRN PRN Reason: Nausea/Vomiting Polyethylene Glycol (Miralax) 17 gm PO DAILY PRN PRN Reason: Constipation Potassium Chloride (Pharmacy To Dose - Potassium Replacement) 0 dose .XX ASDIRECTED PRN PRN Reason: RX TO WATCH K LEVELS Rosuvastatin Calcium (Crestor) 10 mg PO DAILY ON [facility] Last Admin: 03/08/17 08:39 Dose: 10 mg Saccharomyces Boulardii (Florastor) 500 mg PO DAILY ON [facility] Last Admin: 03/08/17 08:39 Dose: 500 mg Senna/Docusate Sodium (Senna Plus) 1 tab PO BID PRN PRN Reason: Constipation Sodium Chloride (Saline Flush) 10 ml FLUSH ASDIRECTED PRN PRN Reason: Keep Vein Open Last Admin: 03/06/17 17:48 Dose: 10 ml Temazepam (Restoril) 7.5 mg PO BEDTIME PRN PRN Reason: Sleep Discontinued Medications Benzonatate (Tessalon Perles) 200 mg PO ONETIME ONE Stop: 03/07/17 16:25 Last Admin: 03/07/17 18:02 Dose: 200 mg Diphtheria/Tetanus/Acell Pertussis (Adacel) 0.5 ml IM .ONCE ONE Stop: 03/06/17 20:58 Famotidine (Pepcid) 20 mg IVPUSH DAILY ONE Stop: 03/07/17 07:01 Last Admin: 03/07/17 06:54 Dose: 20 mg Famotidine (Pepcid) 20 mg IVPUSH ONETIME ONE Stop: 03/06/17 18:37 Last Admin: 03/06/17 19:26 Dose: 20 mg Guaifenesin (Mucinex) 1,200 mg PO ONETIME ONE Stop: 03/07/17 16:25 Last Admin: 03/07/17 18:02 Dose: 1,200 mg Guaifenesin/Codeine Phosphate (Robitussin Ac) 5 ml PO ONETIME ONE Stop: 03/08/17 07:16 Last Admin: 03/08/17 08:39 Dose: 5 ml Guaifenesin/Phenylephrine HCl (Robitussin Dm) 10 ml PO Q4H PRN PRN Reason: Cough Last Admin: 03/06/17 19:26 Dose: 10 ml Levofloxacin/Dextrose 750 mg/ (Premix) 150 mls @ 100 mls/hr IV ONETIME ONE Stop: 03/06/17 18:36 Last Admin: 03/06/17 17:47 Dose: 100 mls/hr Levofloxacin/Dextrose 750 mg/ (Premix) 150 mls @ 100 mls/hr IV Q24H [facility] Last Admin: 03/06/17 22:32 Dose: Not Given Magnesium Oxide (Magnesium Oxide) 800 mg PO ONETIME ONE Stop: 03/07/17 08:01 Last Admin: 03/07/17 08:21 Dose: 800 mg Morphine Sulfate (Morphine) 1 mg IVPUSH Q4H PRN PRN Reason: Other Stop: 03/07/17 18:28 Pneumococcal Polyvalent Vaccine (Pneumovax 23) 0.5 ml IM .ONCE ONE Stop: 03/06/17 20:58 - Exam Quality Assessment: DVT Prophylaxis. No: Supplemental Oxygen General: Alert, Oriented, Cooperative HEENT: Pupils Equal, Pupils Reactive, Mucous Membr. Moist/[place] Neck: Supple, Trachea Midline, No JVD Lungs: Normal Respiratory Effort, Rhonchi (right middle and lower lobes ), Wheezing Cardiovascular: Regular Rate, Regular Rhythm, No Murmurs GI/Abdominal Exam: Normal Bowel Sounds, Soft, Non-Tender, No Organomegaly, No Distention, No Abnormal Bruit (Male) Exam: Deferred Back Exam: Normal Inspection, Full Range of Motion Extremities: Normal Inspection, Normal Range of Motion, Non-Tender, No Pedal Edema, Normal Capillary Refill Peripheral Pulses: 2+: Radial (L), Radial (R), Posterior Tibial (L), Posterior Tibial (R), Dorsalis Pedis (L), Dorsalis Pedis (R) Skin: Warm, Dry, Intact Neurological: No New Focal Deficit Psy/Mental Status: Alert, Normal Affect, Normal Mood Physical Findings Comments:: Encouraged patient to cough and move. RT will continue to evaluate patient and titrate oxygen as needed. On exam patient was not wearing any oxygen. Will continue to monitor. - Problem List & Annotations (1) Pneumonia SNOMED Code(s): 035265182 Code(s): J18.9 - PNEUMONIA, UNSPECIFIED ORGANISM Status: Acute Priority: High Current Visit: Yes Qualifiers: Pneumonia type: due to unspecified organism Laterality: right Lung location: lower lobe of lung Qualified Code(s): J18.1 - Lobar pneumonia, unspecified organism (2) Cough SNOMED Code(s): 35582961 Code(s): R05 - COUGH Status: Acute Priority: High Current Visit: Yes (3) Bronchitis SNOMED Code(s): 82874415 Code(s): J40 - BRONCHITIS, NOT SPECIFIED ACUTE OR CHRONIC Status: Acute Priority: High Current Visit: Yes - Problem List Review Problem List Initiated/Reviewed/Updated: Yes - Assessment Assessment:: Assessment/Plan: Acute: Bibasilar PNA - Right lower perihilar Infiltrate per ED Provider - CXR report from the clinic reads: Bilateral lower lobe pneumonia - Continue IV Levaquin 750 mg x1 in ED - RT Care, Supplemental O2, Decongestant/Expectorant-adjusted - Sputum Cx still uncollected - Strep Pneumonia negative - Mycoplasma Ag-negative - IS and FV as directed - Follow CXR in AM - Dr. Alcala interpretation reports "mild left-sided bronchitis with right upper and right lower lobe pneumonia." Mild Transaminitis - Likely from chronic ETOH Use - He was not able to quantify it for me - Follow up level in AM -AST 63--->52 -ALT 102--->87 -Alk. Phos 255--->219 Thrombocytopenia, Improving - 549 in the clinic 503--> 478--> 443 - Will monitor Hypomagnesemia - Mg 1.7 --->1.8 - Inadequate intake - Pharmacy to replete and monitor Weight Loss - Varying degree of weight loss - Told me 5 lbs in 3 weeks, told dietitian 6 lbs weight loss, told nursing 10 -15 lbs and told Med-student 25 lbs - Defer additional work up outpatient Resolved: Clinical Dehydration - 2/2 poor oral intake - UA spec gravity is suggestive of considerably concentrated urine - IV hydration Mild Leukocytosis - WBC is 11.3 with 6% [facility] labs --->9.45 now - CRP is 22 --->12.3 - Will monitor Chronic: HTN HLD Stroke - Plan Plan:: Plan: He look good aside from cough Resume Home Meds Routine AM Labs Continue PT/OT/RT FV as directed Honey and lemon tea or drink Mucinex 1200 mg po BID Tessalon Perles 200 mg po BID SW/CM for d/c planning Additional orders as above Code status: 1
[2017-03-08] MEDS: Levofloxacin/Dextrose 5%-Water 750 MG in Premix Bag 1 BAG IV SCH (17:31)
[2017-03-08] MEDS: Codeine/guaiFENesin 100-10 MG/5 ML Syrup 5 ML Cup PO PRN ×2 (17:32→22:41)
[2017-03-09] MEDS ORDERED: Gabapentin 100 MG Cap PO SCH (01:15)
[2017-03-09] MEDS: Codeine/guaiFENesin 100-10 MG/5 ML Syrup 5 ML Cup PO PRN (02:52)
[2017-03-09] MEDS: Albuterol/Ipratropium 3.0-0.5 MG/3 ML Neb Soln NEB PRN ×3 (07:45→19:32)
[2017-03-09] MEDS ORDERED: Magnesium Sulfate/Water 2 GM in Premix Bag 1 BAG IV ONE (09:00)
[2017-03-09] MEDS: Hydrochlorothiazide 25 MG Tab PO SCH (09:49)
[2017-03-09] MEDS: Saccharomyces Boulardii (Probiotic) 250 MG Cap PO SCH (09:50)
[2017-03-09] MEDS: Rosuvastatin 10 MG Tab PO SCH (09:53)
[2017-03-09] MEDS: guaiFENesin 600 MG Tab.ER PO SCH ×2 (09:54→20:23)
[2017-03-09] MEDS: Benzonatate 100 MG Cap PO SCH ×4 (09:55→20:23)
[2017-03-09] MEDS: Famotidine 20 MG Tab PO SCH ×2 (09:56→20:23)
[2017-03-09] MEDS: Lisinopril 20 MG Tab PO SCH (09:56)
[2017-03-09] MEDS: amLODIPine 5 MG Tab PO SCH (09:57)
[2017-03-09] MEDS: Aspirin 81 MG Tab.EC PO SCH (09:57)
[2017-03-09] MEDS ORDERED: Benzonatate 100 MG Cap PO PRN (12:26)
[2017-03-09] MEDS: Codeine/guaiFENesin 100-10 MG/5 ML Syrup 5 ML Cup PO SCH ×4 (12:59→20:25)
--- NOTE | 2017-03-09 14:50 | PCM.PN ---
- General Info Date of Service: 03/09/17 Admission Dx/Problem (Free Text): Respiratory Distress Subjective Update: Follow Up Into visit with patient today. He reports that he is feeling slightly better although he still has frequent coughing fits. Nursing discussed changing patient's medication to treat cough. It is felt this is appropriate and orders were signed. Patient is up moving with PT however he reports to me that he still feels weak. His is out of town in [place] for some time however he is arranged for his daughter to take care of him once discharged. Follow-up chest x-ray ordered for tomorrow. Tomorrow will also be patient's fifth day of Levaquin. We'll continue to monitor progress and consider discharge. Functional Status: Reports: Tolerating Diet, Ambulating, Urinating, Incentive Spirometry - Review of Systems General: Reports: Weakness, Fatigue. Denies: Fever, Night Sweats HEENT: Reports: No Symptoms Pulmonary: Reports: Shortness of Breath (with coughing ), Cough, Sputum (unable to retrieve ), Wheezing Cardiovascular: Reports: No Symptoms Gastrointestinal: Reports: No Symptoms Genitourinary: Reports: No Symptoms Musculoskeletal: Reports: No Symptoms Neurological: Reports: Weakness. Denies: Confusion, Dizziness, Headache, Numbness, Tingling, Trouble Speaking, Difficulty Walking, Gait Disturbance Psychiatric: Reports: No Symptoms - Patient Data Vitals - Most Recent: Last Vital Signs Temp 98.1 F 03/09/17 12:33 Pulse 95 03/09/17 12:33 Resp 14 03/09/17 12:33 BP 119/54 L 03/09/17 12:33 Pulse Ox 94 L 03/09/17 14:26 Weight - Most Recent: 187 lb 9.6 oz I&O - Last 24 Hours: Intake & Output 03/08/17 03/09/17 03/09/17 22:59 06:59 14:59 Intake Total 560 600 240 Output Total 650 600 Balance -90 0 240 Lab Results Last 24 Hours: Laboratory Results - last 24 hr 03/09/17 03/09/17 Range/Units 05:30 05:30 WBC 8.25 (4.23-9.07) K/mm3 RBC 3.92 L (4.63-6.08) M/mm3 Hgb 11.3 L (13.7-17.5) gm/L Hct 34.7 L (40.1-51.0) % MCV 88.5 (79.0-92.2) fl MCH 28.8 (25.7-32.2) pg MCHC 32.6 (32.2-35.5) g/dl RDW Std Deviation 44.9 H (35.1-43.9) fL Plt Count 447 H (163-337) K/mm3 MPV 9.7 (9.4-12.3) fl Neut % (Auto) 69.6 H (34.0-67.9) % Lymph % (Auto) 15.5 L (21.8-53.1) % [place] % (Auto) 8.7 (5.3-12.2) % Eos % (Auto) 4.7 (0.8-7.0) Baso % (Auto) 0.2 (0.1-1.2) % Neut # (Auto) 5.73 H (1.78-5.38) K/mm3 Lymph # (Auto) 1.28 L (1.32-3.57) K/mm3 [place] # (Auto) 0.72 (0.30-0.82) K/mm3 Eos # (Auto) 0.39 (0.04-0.54) K/mm3 Baso # (Auto) 0.02 (0.01-0.08) K/mm3 Manual Slide Review Normal smear Sodium 135 L (136-145) mEq/L Potassium 4.0 (3.5-5.1) mEq/L Chloride 101 (98-107) mEq/L Carbon Dioxide 24 (21-32) mEq/L Anion Gap 14.0 (5-15) BUN 33 H (7-18) mg/dL Creatinine 1.2 (0.7-1.3) mg/dL Est Cr Clr Drug Dosing 59.29 mL/min Estimated GFR (MDRD) 60 (>60) mL/min BUN/Creatinine Ratio 27.5 H (14-18) Glucose 108 (80-115) mg/dL Calcium 8.9 (8.5-10.1) mg/dL Magnesium 1.6 L (1.8-2.4) mg/dl Total Bilirubin 0.3 (0.2-1.0) mg/dL AST 43 H (15-37) U/L ALT 77 H (16-63) U/L Alkaline Phosphatase 194 H (46-116) U/L C-Reactive Protein 11.2 H* (<1.0) mg/dL Total Protein 6.5 (6.4-8.2) g/dl Albumin 1.8 L (3.4-5.0) g/dl Globulin 4.7 gm/dL Albumin/Globulin Ratio 0.4 L (1-2) Med Orders - Current: Current Medications Acetaminophen (Tylenol) 650 mg PO Q4H PRN PRN Reason: Pain (Mild 1-3)/fever Hydrocodone Bitart/Acetaminophen ([place] 325-5 Mg) 1 tab PO Q4H PRN PRN Reason: Pain (moderate 4-6) Albuterol/Ipratropium (Duoneb 3.0-0.5 Mg/3 Ml) 3 ml NEB Q4H PRN PRN Reason: Shortness Of Breath/wheezing Last Admin: 03/09/17 14:23 Dose: 3 ml Amlodipine Besylate (Norvasc) 5 mg PO DAILY [facility] Last Admin: 03/09/17 09:57 Dose: 5 mg Aspirin (Halfprin) 81 mg PO DAILY [facility] Last Admin: 03/09/17 09:57 Dose: 81 mg Benzonatate (Tessalon Perles) 200 mg PO TID [facility] Last Admin: 03/09/17 14:42 Dose: 200 mg Bisacodyl (Dulcolax) 5 mg PO DAILY PRN PRN Reason: Constipation Docusate Sodium (Colace) 100 mg PO BID PRN PRN Reason: Constipation Famotidine (Pepcid) 20 mg PO BID [facility] Last Admin: 03/09/17 09:56 Dose: 20 mg Guaifenesin (Mucinex) 1,200 mg PO BID [facility] Last Admin: 03/09/17 09:54 Dose: 1,200 mg Guaifenesin/Codeine Phosphate (Robitussin Ac) 5 ml PO Q4H [facility] Last Admin: 03/09/17 12:59 Dose: 5 ml Hydralazine HCl (Apresoline) 20 mg IVPUSH Q4H PRN PRN Reason: Hypertension Hydrochlorothiazide (Hydrochlorothiazide) 25 mg PO DAILY [facility] Last Admin: 03/09/17 09:49 Dose: 25 mg Promethazine HCl 12.5 mg/ (Sodium Chloride) 50.5 mls @ 100 mls/hr IV Q6H PRN PRN Reason: Nausea/Vomiting Levofloxacin/Dextrose 750 mg/ (Premix) 150 mls @ 100 mls/hr IV Q24H [facility] Last Admin: 03/08/17 17:31 Dose: 100 mls/hr Lisinopril (Prinivil) 20 mg PO DAILY [facility] Last Admin: 03/09/17 09:56 Dose: 20 mg Lorazepam (Ativan) 0.5 mg IV Q6H PRN PRN Reason: Anxiety Lorazepam (Ativan) 2 mg IVPUSH Q4H PRN PRN Reason: Seizures Magnesium Sulfate (Pharmacy To Dose - Magnesium Replacement) 0 dose .XX ASDIRECTED PRN PRN Reason: RX TO WATCH MAG LEVELS Metoprolol Tartrate (Lopressor) 5 mg IVPUSH Q4H PRN PRN Reason: Tachycardia Ondansetron HCl (Zofran) 4 mg IV Q6H PRN PRN Reason: Nausea/Vomiting Polyethylene Glycol (Miralax) 17 gm PO DAILY PRN PRN Reason: Constipation Potassium Chloride (Pharmacy To Dose - Potassium Replacement) 0 dose .XX ASDIRECTED PRN PRN Reason: RX TO WATCH K LEVELS Rosuvastatin Calcium (Crestor) 10 mg PO DAILY [facility] Last Admin: 03/09/17 09:53 Dose: 10 mg Saccharomyces Boulardii (Florastor) 500 mg PO DAILY [facility] Last Admin: 03/09/17 09:50 Dose: 500 mg Senna/Docusate Sodium (Senna Plus) 1 tab PO BID PRN PRN Reason: Constipation Sodium Chloride (Saline Flush) 10 ml FLUSH ASDIRECTED PRN PRN Reason: Keep Vein Open Last Admin: 03/06/17 17:48 Dose: 10 ml Temazepam (Restoril) 7.5 mg PO BEDTIME PRN PRN Reason: Sleep Discontinued Medications Benzonatate (Tessalon Perles) 200 mg PO ONETIME ONE Stop: 03/07/17 16:25 Last Admin: 03/07/17 18:02 Dose: 200 mg Benzonatate (Tessalon Perles) 200 mg PO BID [facility] Last Admin: 03/09/17 09:55 Dose: 200 mg Benzonatate (Tessalon Perles) 200 mg PO TID PRN PRN Reason: Cough Diphtheria/Tetanus/Acell Pertussis (Adacel) 0.5 ml IM .ONCE ONE Stop: 03/06/17 20:58 Famotidine (Pepcid) 20 mg IVPUSH DAILY ONE Stop: 03/07/17 07:01 Last Admin: 03/07/17 06:54 Dose: 20 mg Famotidine (Pepcid) 20 mg IVPUSH ONETIME ONE Stop: 03/06/17 18:37 Last Admin: 03/06/17 19:26 Dose: 20 mg Guaifenesin (Mucinex) 1,200 mg PO ONETIME ONE Stop: 03/07/17 16:25 Last Admin: 03/07/17 18:02 Dose: 1,200 mg Guaifenesin/Codeine Phosphate (Robitussin Ac) 5 ml PO ONETIME ONE Stop: 03/08/17 07:16 Last Admin: 03/08/17 08:39 Dose: 5 ml Guaifenesin/Codeine Phosphate (Robitussin Ac) 5 ml PO Q4H PRN PRN Reason: Cough Last Admin: 03/09/17 02:52 Dose: 5 ml Guaifenesin/Phenylephrine HCl (Robitussin Dm) 10 ml PO Q4H PRN PRN Reason: Cough Last Admin: 03/06/17 19:26 Dose: 10 ml Levofloxacin/Dextrose 750 mg/ (Premix) 150 mls @ 100 mls/hr IV ONETIME ONE Stop: 03/06/17 18:36 Last Admin: 03/06/17 17:47 Dose: 100 mls/hr Levofloxacin/Dextrose 750 mg/ (Premix) 150 mls @ 100 mls/hr IV Q24H [facility] Last Admin: 03/06/17 22:32 Dose: Not Given Magnesium Sulfate 2 gm/ Premix 50 mls @ 25 mls/hr IV ONETIME ONE Stop: 03/09/17 10:59 Last Admin: 03/09/17 11:40 Dose: 25 mls/hr Magnesium Oxide (Magnesium Oxide) 800 mg PO ONETIME ONE Stop: 03/07/17 08:01 Last Admin: 03/07/17 08:21 Dose: 800 mg Morphine Sulfate (Morphine) 1 mg IVPUSH Q4H PRN PRN Reason: Other Stop: 03/07/17 18:28 Pneumococcal Polyvalent Vaccine (Pneumovax 23) 0.5 ml IM .ONCE ONE Stop: 03/06/17 20:58 - Exam Quality Assessment: DVT Prophylaxis General: Alert, Oriented, Cooperative, Mild Distress (When coughing) HEENT: Pupils Equal, Pupils Reactive, Mucous Membr. Moist/[place] Neck: Supple, Trachea Midline, No JVD Lungs: Normal Respiratory Effort, Rhonchi (right side ), Wheezing (right side ) Cardiovascular: Regular Rate, Regular Rhythm GI/Abdominal Exam: Normal Bowel Sounds, Soft, No Distention (Male) Exam: Deferred Back Exam: Normal Inspection, Full Range of Motion Extremities: Normal Inspection, Normal Range of Motion, Non-Tender, No Pedal Edema, Normal Capillary Refill Peripheral Pulses: 2+: Radial (L), Radial (R), Posterior Tibial (L), Posterior Tibial (R), Dorsalis Pedis (L), Dorsalis Pedis (R) Skin: Warm, Dry, Intact Neurological: No New Focal Deficit Psy/Mental Status: Alert, Normal Affect, Normal Mood Physical Findings Comments:: Patient examined while sitting in bed. Cough appears to have improved slightly. Overall he is doing better. Leukocytosis has resolved and CRP is trending downward. Magnesium was low today and was supplemented. Will continue with RT evaluation and treatment as well as PT/OT and frequent walks. - Problem List & Annotations (1) Pneumonia SNOMED Code(s): 145235967 Code(s): J18.9 - PNEUMONIA, UNSPECIFIED ORGANISM Status: Acute Priority: High Current Visit: Yes Qualifiers: Pneumonia type: due to unspecified organism Laterality: right Lung location: lower lobe of lung Qualified Code(s): J18.1 - Lobar pneumonia, unspecified organism (2) Cough SNOMED Code(s): 65715618 Code(s): R05 - COUGH Status: Acute Priority: High Current Visit: Yes (3) Bronchitis SNOMED Code(s): 33969498 Code(s): J40 - BRONCHITIS, NOT SPECIFIED ACUTE OR CHRONIC Status: Acute Priority: High Current Visit: Yes - Problem List Review Problem List Initiated/Reviewed/Updated: Yes - My Orders Last 24 Hours: My Active Orders 03/10/17 10:04 CXR [Chest 2V] [CR] Routine - Assessment Assessment:: Assessment/Plan: Acute: Bibasilar PNA - Right lower perihilar Infiltrate per ED Provider - CXR report from the clinic reads: Bilateral lower lobe pneumonia - Continue IV Levaquin 750 mg x1 in ED - RT Care, Supplemental O2, Decongestant/Expectorant-adjusted - Sputum Cx still uncollected - Strep Pneumonia negative - Mycoplasma Ag-negative - IS and FV as directed - Follow CXR in AM - Dr. Alcala interpretation reports "mild left-sided bronchitis with right upper and right lower lobe pneumonia." - Follow-up CXR tomorrow (Monday) Mild Transaminitis - Likely from chronic ETOH Use - He was not able to quantify it for me - Follow up level in AM -AST 63--->52 -ALT 102--->87 -Alk. Phos 255--->219 -Levels Decreasing Thrombocytopenia, Improving - 549 in the clinic 503--> 478--> 443--->447 - Will monitor Hypomagnesemia - Mg 1.7 --->1.8--->1.6 - Inadequate intake - Pharmacy to replete and monitor Weight Loss - Varying degree of weight loss - Told me 5 lbs in 3 weeks, told dietitian 6 lbs weight loss, told nursing 10 -15 lbs and told Med-student 25 lbs - Defer additional work up outpatient Resolved: Clinical Dehydration - 2/2 poor oral intake - UA spec gravity is suggestive of considerably concentrated urine - IV hydration Mild Leukocytosis - Resolved - WBC is 11.3 with 6% [facility] labs --->9.45 --->8.25 now - CRP is 22 --->12.3--->11.2 - Will monitor Chronic: HTN HLD Stroke - Plan Plan:: Plan: He look good aside from cough, which is improving Resume Home Meds Routine AM Labs Continue PT/OT/RT FV as directed Honey and lemon tea or drink Mucinex 1200 mg po BID Tessalon Perles 200 mg po BID ---> Increased to TID SW/CM for d/c planning Additional orders as above Code status: 1
[2017-03-09] MEDS: Levofloxacin/Dextrose 5%-Water 750 MG in Premix Bag 1 BAG IV SCH (16:25)
[2017-03-10] MEDS: Codeine/guaiFENesin 100-10 MG/5 ML Syrup 5 ML Cup PO SCH ×6 (03:17→20:52)
[2017-03-10] MEDS: Albuterol/Ipratropium 3.0-0.5 MG/3 ML Neb Soln NEB PRN ×3 (08:08→20:58)
[2017-03-10] MEDS: Saccharomyces Boulardii (Probiotic) 250 MG Cap PO SCH (09:05)
[2017-03-10] MEDS: guaiFENesin 600 MG Tab.ER PO SCH ×2 (09:05→20:52)
[2017-03-10] MEDS: Benzonatate 100 MG Cap PO SCH ×3 (09:06→20:53)
[2017-03-10] MEDS: Aspirin 81 MG Tab.EC PO SCH (09:07)
[2017-03-10] MEDS: Rosuvastatin 10 MG Tab PO SCH (09:07)
[2017-03-10] MEDS: Hydrochlorothiazide 25 MG Tab PO SCH (09:07)
[2017-03-10] MEDS: Famotidine 20 MG Tab PO SCH ×2 (09:07→20:52)
[2017-03-10] MEDS: amLODIPine 5 MG Tab PO SCH (09:10)
[2017-03-10] MEDS: Lisinopril 20 MG Tab PO SCH (09:10)
--- NOTE | 2017-03-10 11:10 | CR ---
Chest: Two views of the chest were obtained. Comparison: Previous chest x-ray of 03/08/17. Continuing increased density within mostly the right lung base is noted. Limited inspiratory effort is seen causing some left sided atelectasis. Heart size and mediastinum are normal. Bony structures show slight degenerative spurring within the spine. Impression: 1. Continuing density mostly within the right lung base. Findings presumably represent continuing change from pneumonia. 2. Limited inspiratory effort causing some left-sided atelectasis. Diagnostic code #3
[2017-03-10] MEDS ORDERED: Magnesium Oxide 400 MG Tab PO ONE (13:00)
--- NOTE | 2017-03-10 13:07 | PCM.PN ---
- General Info Date of Service: 03/10/17 Admission Dx/Problem (Free Text): Respiratory Distress; Pneumonia Matteo is seen this morning resting in bed. He appears tired and is minimally interactive with me. States he did not sleep well and is tired and "just want to rest". States cough is improving, still slight production. Denies CP, CERVANTES, abd pain or back pain. Still feels weak and fatigued; had chills last night. Functional Status: Reports: Pain Controlled, Tolerating Diet, Ambulating, Urinating, Incentive Spirometry. Denies: New Symptoms - Review of Systems General: Reports: Weakness, Fatigue, Chills. Denies: Fever (afebrile) HEENT: Denies: Headaches, Sinus Congestion, Sore Throat Pulmonary: Reports: Cough, Wheezing. Denies: Shortness of Breath, Pleuritic Chest Pain Cardiovascular: Reports: No Symptoms. Denies: Chest Pain, Palpitations Gastrointestinal: Reports: No Symptoms Genitourinary: Reports: No Symptoms - Patient Data Vitals - Most Recent: Last Vital Signs Temp 98.2 F 03/09/17 22:15 Pulse 100 03/09/17 22:15 Resp 22 H 03/09/17 22:15 BP 125/55 L 03/10/17 09:10 Pulse Ox 92 L 03/10/17 08:08 Weight - Most Recent: 186 lb 11.2 oz I&O - Last 24 Hours: Intake & Output 03/09/17 03/10/17 03/10/17 22:59 06:59 14:59 Intake Total 770 200 Output Total 450 725 Balance 320 -525 Lab Results Last 24 Hours: Laboratory Results - last 24 hr 03/10/17 03/10/17 03/10/17 Range/Units 05:47 05:47 05:47 WBC 7.70 (4.23-9.07) K/mm3 RBC 3.93 L (4.63-6.08) M/mm3 Hgb 11.3 L (13.7-17.5) gm/L Hct 34.4 L (40.1-51.0) % MCV 87.5 (79.0-92.2) fl MCH 28.8 (25.7-32.2) pg MCHC 32.8 (32.2-35.5) g/dl RDW Std Deviation 43.0 (35.1-43.9) fL Plt Count 446 H (163-337) K/mm3 MPV 9.5 (9.4-12.3) fl Neut % (Auto) 67.9 (34.0-67.9) % Lymph % (Auto) 15.2 L (21.8-53.1) % [place] % (Auto) 10.8 (5.3-12.2) % Eos % (Auto) 5.8 (0.8-7.0) Baso % (Auto) 0.3 (0.1-1.2) % Neut # (Auto) 5.23 (1.78-5.38) K/mm3 Lymph # (Auto) 1.17 L (1.32-3.57) K/mm3 [place] # (Auto) 0.83 H (0.30-0.82) K/mm3 Eos # (Auto) 0.45 (0.04-0.54) K/mm3 Baso # (Auto) 0.02 (0.01-0.08) K/mm3 Manual Slide Review Abnormal smear Sodium 137 (136-145) mEq/L Potassium 4.2 (3.5-5.1) mEq/L Chloride 103 (98-107) mEq/L Carbon Dioxide 25 (21-32) mEq/L Anion Gap 13.2 (5-15) BUN 30 H (7-18) mg/dL Creatinine 1.3 (0.7-1.3) mg/dL Est Cr Clr Drug Dosing 54.73 mL/min Estimated GFR (MDRD) 55 (>60) mL/min BUN/Creatinine Ratio 23.1 H (14-18) Glucose 110 (80-115) mg/dL Calcium 8.9 (8.5-10.1) mg/dL Magnesium 1.8 (1.8-2.4) mg/dl Total Bilirubin 0.3 (0.2-1.0) mg/dL AST 47 H (15-37) U/L ALT 72 H (16-63) U/L Alkaline Phosphatase 171 H (46-116) U/L C-Reactive Protein 12.2 H* (<1.0) mg/dL Total Protein 6.4 (6.4-8.2) g/dl Albumin 1.8 L (3.4-5.0) g/dl Globulin 4.6 gm/dL Albumin/Globulin Ratio 0.4 L (1-2) Med Orders - Current: Current Medications Acetaminophen (Tylenol) 650 mg PO Q4H PRN PRN Reason: Pain (Mild 1-3)/fever Hydrocodone Bitart/Acetaminophen ([place] 325-5 Mg) 1 tab PO Q4H PRN PRN Reason: Pain (moderate 4-6) Albuterol/Ipratropium (Duoneb 3.0-0.5 Mg/3 Ml) 3 ml NEB Q4H PRN PRN Reason: Shortness Of Breath/wheezing Last Admin: 03/10/17 08:08 Dose: 3 ml Amlodipine Besylate (Norvasc) 5 mg PO DAILY [facility] Last Admin: 03/10/17 09:10 Dose: 5 mg Aspirin (Halfprin) 81 mg PO DAILY [facility] Last Admin: 03/10/17 09:07 Dose: 81 mg Benzonatate (Tessalon Perles) 200 mg PO TID [facility] Last Admin: 03/10/17 09:06 Dose: 200 mg Bisacodyl (Dulcolax) 5 mg PO DAILY PRN PRN Reason: Constipation Docusate Sodium (Colace) 100 mg PO BID PRN PRN Reason: Constipation Famotidine (Pepcid) 20 mg PO BID [facility] Last Admin: 03/10/17 09:07 Dose: 20 mg Guaifenesin (Mucinex) 1,200 mg PO BID [facility] Last Admin: 03/10/17 09:05 Dose: 1,200 mg Guaifenesin/Codeine Phosphate (Robitussin Ac) 5 ml PO Q4H [facility] Last Admin: 03/10/17 11:44 Dose: 5 ml Hydralazine HCl (Apresoline) 20 mg IVPUSH Q4H PRN PRN Reason: Hypertension Hydrochlorothiazide (Hydrochlorothiazide) 25 mg PO DAILY [facility] Last Admin: 03/10/17 09:07 Dose: 25 mg Promethazine HCl 12.5 mg/ (Sodium Chloride) 50.5 mls @ 100 mls/hr IV Q6H PRN PRN Reason: Nausea/Vomiting Levofloxacin/Dextrose 750 mg/ (Premix) 150 mls @ 100 mls/hr IV Q24H [facility] Last Admin: 03/09/17 16:25 Dose: 100 mls/hr Lisinopril (Prinivil) 20 mg PO DAILY [facility] Last Admin: 03/10/17 09:10 Dose: 20 mg Lorazepam (Ativan) 0.5 mg IV Q6H PRN PRN Reason: Anxiety Lorazepam (Ativan) 2 mg IVPUSH Q4H PRN PRN Reason: Seizures Magnesium Oxide (Magnesium Oxide) 400 mg PO ONETIME ONE Stop: 03/10/17 13:01 Magnesium Sulfate (Pharmacy To Dose - Magnesium Replacement) 0 dose .XX ASDIRECTED PRN PRN Reason: RX TO WATCH MAG LEVELS Metoprolol Tartrate (Lopressor) 5 mg IVPUSH Q4H PRN PRN Reason: Tachycardia Ondansetron HCl (Zofran) 4 mg IV Q6H PRN PRN Reason: Nausea/Vomiting Polyethylene Glycol (Miralax) 17 gm PO DAILY PRN PRN Reason: Constipation Potassium Chloride (Pharmacy To Dose - Potassium Replacement) 0 dose .XX ASDIRECTED PRN PRN Reason: RX TO WATCH K LEVELS Rosuvastatin Calcium (Crestor) 10 mg PO DAILY [facility] Last Admin: 03/10/17 09:07 Dose: 10 mg Saccharomyces Boulardii (Florastor) 500 mg PO DAILY [facility] Last Admin: 03/10/17 09:05 Dose: 500 mg Senna/Docusate Sodium (Senna Plus) 1 tab PO BID PRN PRN Reason: Constipation Sodium Chloride (Saline Flush) 10 ml FLUSH ASDIRECTED PRN PRN Reason: Keep Vein Open Last Admin: 03/06/17 17:48 Dose: 10 ml Temazepam (Restoril) 7.5 mg PO BEDTIME PRN PRN Reason: Sleep Discontinued Medications Benzonatate (Tessalon Perles) 200 mg PO ONETIME ONE Stop: 03/07/17 16:25 Last Admin: 03/07/17 18:02 Dose: 200 mg Benzonatate (Tessalon Perles) 200 mg PO BID [facility] Last Admin: 03/09/17 09:55 Dose: 200 mg Benzonatate (Tessalon Perles) 200 mg PO TID PRN PRN Reason: Cough Diphtheria/Tetanus/Acell Pertussis (Adacel) 0.5 ml IM .ONCE ONE Stop: 03/06/17 20:58 Famotidine (Pepcid) 20 mg IVPUSH DAILY ONE Stop: 03/07/17 07:01 Last Admin: 03/07/17 06:54 Dose: 20 mg Famotidine (Pepcid) 20 mg IVPUSH ONETIME ONE Stop: 03/06/17 18:37 Last Admin: 03/06/17 19:26 Dose: 20 mg Guaifenesin (Mucinex) 1,200 mg PO ONETIME ONE Stop: 03/07/17 16:25 Last Admin: 03/07/17 18:02 Dose: 1,200 mg Guaifenesin/Codeine Phosphate (Robitussin Ac) 5 ml PO ONETIME ONE Stop: 03/08/17 07:16 Last Admin: 03/08/17 08:39 Dose: 5 ml Guaifenesin/Codeine Phosphate (Robitussin Ac) 5 ml PO Q4H PRN PRN Reason: Cough Last Admin: 03/09/17 02:52 Dose: 5 ml Guaifenesin/Phenylephrine HCl (Robitussin Dm) 10 ml PO Q4H PRN PRN Reason: Cough Last Admin: 03/06/17 19:26 Dose: 10 ml Levofloxacin/Dextrose 750 mg/ (Premix) 150 mls @ 100 mls/hr IV ONETIME ONE Stop: 03/06/17 18:36 Last Admin: 03/06/17 17:47 Dose: 100 mls/hr Levofloxacin/Dextrose 750 mg/ (Premix) 150 mls @ 100 mls/hr IV Q24H [facility] Last Admin: 03/06/17 22:32 Dose: Not Given Magnesium Sulfate 2 gm/ Premix 50 mls @ 25 mls/hr IV ONETIME ONE Stop: 03/09/17 10:59 Last Admin: 03/09/17 11:40 Dose: 25 mls/hr Magnesium Oxide (Magnesium Oxide) 800 mg PO ONETIME ONE Stop: 03/07/17 08:01 Last Admin: 03/07/17 08:21 Dose: 800 mg Morphine Sulfate (Morphine) 1 mg IVPUSH Q4H PRN PRN Reason: Other Stop: 03/07/17 18:28 Pneumococcal Polyvalent Vaccine (Pneumovax 23) 0.5 ml IM .ONCE ONE Stop: 03/06/17 20:58 - Exam Quality Assessment: DVT Prophylaxis General: Alert, Oriented, Cooperative, No Acute Distress HEENT: Pupils Equal, EOMI, Mucous Membr. Moist/[place] Neck: Supple Lungs: Normal Respiratory Effort, Decreased Breath Sounds (bases), Crackles ( right base), Wheezing (right side) Cardiovascular: Regular Rate, Regular Rhythm GI/Abdominal Exam: Normal Bowel Sounds, Soft, Non-Tender (Male) Exam: Deferred Back Exam: Normal Inspection Extremities: Normal Inspection, No Pedal Edema, Normal Capillary Refill Peripheral Pulses: 1+: Dorsalis Pedis (L), Dorsalis Pedis (R) Skin: Warm, Dry, Intact Neurological: No New Focal Deficit Psy/Mental Status: Alert, Other (flat affect) - Problem List & Annotations (1) Pneumonia SNOMED Code(s): 003141884 Code(s): J18.9 - PNEUMONIA, UNSPECIFIED ORGANISM Status: Acute Priority: High Current Visit: Yes Qualifiers: Pneumonia type: due to unspecified organism Laterality: right Lung location: lower lobe of lung Qualified Code(s): J18.1 - Lobar pneumonia, unspecified organism - Problem List Review Problem List Initiated/Reviewed/Updated: Yes - Assessment Assessment:: Assessment/Plan: Acute: Bibasilar PNA - Right lower perihilar Infiltrate per ED Provider - CXR report from the clinic reads: Bilateral lower lobe pneumonia - Continue IV Levaquin 750 mg daily - RT/IS/FV, Supplemental O2, Decongestant/Expectorant - Strep Pneumonia negative; Mycoplasma Ag-negative - CXR today with slight improvement noted to RLL PNA Mild Transaminitis - Likely from chronic ETOH Use - He was not able to quantify this - Cont to follow-Levels Decreasing - Follow up as outpatient with PCP - Counseled on ETOH use/abuse Thrombocytopenia, Improving - Will monitor Hypomagnesemia - Inadequate intake - Pharmacy to replete - Cont to monitor Weight Loss - Varying degree of weight loss - Told me 5 lbs in 3 weeks, told dietitian 6 lbs weight loss, told nursing 10 -15 lbs and told Med-student 25 lbs - Defer additional work up outpatient Resolved: Clinical Dehydration - 2/2 poor oral intake - UA spec gravity is suggestive of considerably concentrated urine - IV hydration Mild Leukocytosis - Resolved - WBC is 11.3 with 6% [facility] labs --->9.45 --->8.25 now - CRP is 22 --->12.3--->11.2 - Will monitor Chronic: HTN HLD Hx of CVA - Plan Plan:: Plan: He continues to improve, continues to have cough, fatigue and weakness Resume Home Meds Routine AM Labs Continue PT/OT/RT FV/IS as directed Honey and lemon tea or drink Mucinex 1200 mg po BID, Tessalon Perles 200 mg po BID ---> Increased to TID SW/CM for d/c planning---Plan DC back home to [facility] with family to stay with him, likely tomorrow if continues to do well LOS will be >96 hours due to slower than expected course of improvement with bilateral pneumonia, need for continued tx with IV abx, continued PT/OT, lab and VS monitoring. Additional orders as above Code status: 1
[2017-03-10] MEDS: Levofloxacin/Dextrose 5%-Water 750 MG in Premix Bag 1 BAG IV SCH (17:20)
[2017-03-11] MEDS: Codeine/guaiFENesin 100-10 MG/5 ML Syrup 5 ML Cup PO SCH ×7 (01:45→22:25)
[2017-03-11] MEDS: Albuterol/Ipratropium 3.0-0.5 MG/3 ML Neb Soln NEB PRN ×2 (08:22→14:27)
[2017-03-11] MEDS: Hydrochlorothiazide 25 MG Tab PO SCH (09:15)
[2017-03-11] MEDS: Lisinopril 20 MG Tab PO SCH (09:16)
[2017-03-11] MEDS: Benzonatate 100 MG Cap PO SCH ×3 (09:16→22:25)
[2017-03-11] MEDS: Famotidine 20 MG Tab PO SCH (09:16)
[2017-03-11] MEDS: Rosuvastatin 10 MG Tab PO SCH (09:16)
[2017-03-11] MEDS: amLODIPine 5 MG Tab PO SCH (09:16)
[2017-03-11] MEDS: guaiFENesin 600 MG Tab.ER PO SCH ×2 (09:16→22:24)
[2017-03-11] MEDS: Aspirin 81 MG Tab.EC PO SCH (09:16)
[2017-03-11] MEDS: Saccharomyces Boulardii (Probiotic) 250 MG Cap PO SCH (09:20)
[2017-03-11] MEDS ORDERED: Piperacillin/Tazobactam 4.5 GM in Sodium Chloride 0.9% 100 ML IV ONE (10:15)
--- NOTE | 2017-03-11 13:03 | PCM.PN ---
- General Info Date of Service: 03/11/17 Admission Dx/Problem (Free Text): Respiratory Distress; Pneumonia Subjective Update: Follow Up I Functional Status: Reports: Pain Controlled, Tolerating Diet, Ambulating, Urinating. Denies: New Symptoms - Review of Systems General: Reports: Weakness, Fatigue. Denies: Fever, Malaise, Chills HEENT: Reports: No Symptoms Pulmonary: Reports: Cough. Denies: Shortness of Breath, Sputum Cardiovascular: Denies: Chest Pain, Palpitations, Dyspnea on Exertion, Edema, Lightheadedness Gastrointestinal: Denies: Abdominal Pain, Nausea, Vomiting Genitourinary: Reports: No Symptoms Musculoskeletal: Reports: No Symptoms Skin: Denies: Cyanosis, Pallor, Diaphoresis Neurological: Denies: Confusion, Dizziness, Difficulty Walking, Weakness, Gait Disturbance Psychiatric: Reports: No Symptoms. Denies: Confusion, Depression, Anxiety, Agitation, Cravings, Hallucinations, Suicidal Ideation Systems Review Comment:: No significant overnight or acute issues. By labs he is improving but clinically he is not. He still cough a lot but w/o sputum or phlegm. He feels better but not much. - Patient Data Vitals - Most Recent: Last Vital Signs Temp 35.1 C L 03/11/17 08:20 Pulse 97 03/11/17 09:10 Resp 14 03/11/17 08:20 BP 119/62 03/11/17 09:16 Pulse Ox 92 L 03/11/17 09:10 Weight - Most Recent: 84.232 kg I&O - Last 24 Hours: Intake & Output 03/10/17 03/11/17 03/11/17 22:59 06:59 14:59 Intake Total 200 600 210 Output Total 400 400 Balance -200 200 210 Lab Results Last 24 Hours: Laboratory Results - last 24 hr 03/11/17 03/11/17 Range/Units 11:05 11:05 Sodium 134 L (136-145) mEq/L Potassium 3.7 (3.5-5.1) mEq/L Chloride 102 (98-107) mEq/L Carbon Dioxide 26 (21-32) mEq/L Anion Gap 9.7 (5-15) BUN 31 H (7-18) mg/dL Creatinine 1.3 (0.7-1.3) mg/dL Est Cr Clr Drug Dosing 54.73 mL/min Estimated GFR (MDRD) 55 (>60) mL/min BUN/Creatinine Ratio 23.8 H (14-18) Glucose 146 H (80-115) mg/dL Calcium 8.9 (8.5-10.1) mg/dL Magnesium 1.8 (1.8-2.4) mg/dl Total Bilirubin 0.3 (0.2-1.0) mg/dL AST 37 (15-37) U/L ALT 66 H (16-63) U/L Alkaline Phosphatase 163 H (46-116) U/L Total Protein 6.4 (6.4-8.2) g/dl Albumin 1.8 L (3.4-5.0) g/dl Globulin 4.6 gm/dL Albumin/Globulin Ratio 0.4 L (1-2) Med Orders - Current: Current Medications Acetaminophen (Tylenol) 650 mg PO Q4H PRN PRN Reason: Pain (Mild 1-3)/fever Hydrocodone Bitart/Acetaminophen ([place] 325-5 Mg) 1 tab PO Q4H PRN PRN Reason: Pain (moderate 4-6) Albuterol/Ipratropium (Duoneb 3.0-0.5 Mg/3 Ml) 3 ml NEB Q4H PRN PRN Reason: Shortness Of Breath/wheezing Last Admin: 03/11/17 08:22 Dose: 3 ml Amlodipine Besylate (Norvasc) 5 mg PO DAILY [facility] Last Admin: 03/11/17 09:16 Dose: 5 mg Aspirin (Halfprin) 81 mg PO DAILY [facility] Last Admin: 03/11/17 09:16 Dose: 81 mg Benzonatate (Tessalon Perles) 200 mg PO TID [facility] Last Admin: 03/11/17 09:16 Dose: 200 mg Bisacodyl (Dulcolax) 5 mg PO DAILY PRN PRN Reason: Constipation Docusate Sodium (Colace) 100 mg PO BID PRN PRN Reason: Constipation Famotidine (Pepcid) 20 mg PO BID [facility] Last Admin: 03/11/17 09:16 Dose: 20 mg Guaifenesin (Mucinex) 1,200 mg PO BID [facility] Last Admin: 03/11/17 09:16 Dose: 1,200 mg Guaifenesin/Codeine Phosphate (Robitussin Ac) 5 ml PO Q4H [facility] Last Admin: 03/11/17 11:32 Dose: 5 ml Hydralazine HCl (Apresoline) 20 mg IVPUSH Q4H PRN PRN Reason: Hypertension Hydrochlorothiazide (Hydrochlorothiazide) 25 mg PO DAILY [facility] Last Admin: 03/11/17 09:15 Dose: 25 mg Promethazine HCl 12.5 mg/ (Sodium Chloride) 50.5 mls @ 100 mls/hr IV Q6H PRN PRN Reason: Nausea/Vomiting Levofloxacin/Dextrose 750 mg/ (Premix) 150 mls @ 100 mls/hr IV Q24H [facility] Last Admin: 03/10/17 17:20 Dose: 100 mls/hr Piperacillin Sod/Tazobactam (Sod 4.5 gm/ Sodium Chloride) 100 mls @ 25 mls/hr IV Q8H [facility] Lisinopril (Prinivil) 20 mg PO DAILY [facility] Last Admin: 03/11/17 09:16 Dose: 20 mg Lorazepam (Ativan) 0.5 mg IV Q6H PRN PRN Reason: Anxiety Lorazepam (Ativan) 2 mg IVPUSH Q4H PRN PRN Reason: Seizures Magnesium Sulfate (Pharmacy To Dose - Magnesium Replacement) 0 dose .XX ASDIRECTED PRN PRN Reason: RX TO WATCH MAG LEVELS Metoprolol Tartrate (Lopressor) 5 mg IVPUSH Q4H PRN PRN Reason: Tachycardia Ondansetron HCl (Zofran) 4 mg IV Q6H PRN PRN Reason: Nausea/Vomiting Polyethylene Glycol (Miralax) 17 gm PO DAILY PRN PRN Reason: Constipation Potassium Chloride (Pharmacy To Dose - Potassium Replacement) 0 dose .XX ASDIRECTED PRN PRN Reason: RX TO WATCH K LEVELS Rosuvastatin Calcium (Crestor) 10 mg PO DAILY [facility] Last Admin: 03/11/17 09:16 Dose: 10 mg Saccharomyces Boulardii (Florastor) 500 mg PO DAILY [facility] Last Admin: 03/11/17 09:20 Dose: 500 mg Senna/Docusate Sodium (Senna Plus) 1 tab PO BID PRN PRN Reason: Constipation Sodium Chloride (Saline Flush) 10 ml FLUSH ASDIRECTED PRN PRN Reason: Keep Vein Open Last Admin: 03/06/17 17:48 Dose: 10 ml Temazepam (Restoril) 7.5 mg PO BEDTIME PRN PRN Reason: Sleep Discontinued Medications Benzonatate (Tessalon Perles) 200 mg PO ONETIME ONE Stop: 03/07/17 16:25 Last Admin: 03/07/17 18:02 Dose: 200 mg Benzonatate (Tessalon Perles) 200 mg PO BID [facility] Last Admin: 03/09/17 09:55 Dose: 200 mg Benzonatate (Tessalon Perles) 200 mg PO TID PRN PRN Reason: Cough Diphtheria/Tetanus/Acell Pertussis (Adacel) 0.5 ml IM .ONCE ONE Stop: 03/06/17 20:58 Famotidine (Pepcid) 20 mg IVPUSH DAILY ONE Stop: 03/07/17 07:01 Last Admin: 03/07/17 06:54 Dose: 20 mg Famotidine (Pepcid) 20 mg IVPUSH ONETIME ONE Stop: 03/06/17 18:37 Last Admin: 03/06/17 19:26 Dose: 20 mg Guaifenesin (Mucinex) 1,200 mg PO ONETIME ONE Stop: 03/07/17 16:25 Last Admin: 03/07/17 18:02 Dose: 1,200 mg Guaifenesin/Codeine Phosphate (Robitussin Ac) 5 ml PO ONETIME ONE Stop: 03/08/17 07:16 Last Admin: 03/08/17 08:39 Dose: 5 ml Guaifenesin/Codeine Phosphate (Robitussin Ac) 5 ml PO Q4H PRN PRN Reason: Cough Last Admin: 03/09/17 02:52 Dose: 5 ml Guaifenesin/Phenylephrine HCl (Robitussin Dm) 10 ml PO Q4H PRN PRN Reason: Cough Last Admin: 03/06/17 19:26 Dose: 10 ml Levofloxacin/Dextrose 750 mg/ (Premix) 150 mls @ 100 mls/hr IV ONETIME ONE Stop: 03/06/17 18:36 Last Admin: 03/06/17 17:47 Dose: 100 mls/hr Levofloxacin/Dextrose 750 mg/ (Premix) 150 mls @ 100 mls/hr IV Q24H [facility] Last Admin: 03/06/17 22:32 Dose: Not Given Magnesium Sulfate 2 gm/ Premix 50 mls @ 25 mls/hr IV ONETIME ONE Stop: 03/09/17 10:59 Last Admin: 03/09/17 11:40 Dose: 25 mls/hr Piperacillin Sod/Tazobactam (Sod 4.5 gm/ Sodium Chloride) 100 mls @ 200 mls/hr IV ONETIME ONE Stop: 03/11/17 10:44 Last Admin: 03/11/17 10:56 Dose: 200 mls/hr Magnesium Oxide (Magnesium Oxide) 800 mg PO ONETIME ONE Stop: 03/07/17 08:01 Last Admin: 03/07/17 08:21 Dose: 800 mg Magnesium Oxide (Magnesium Oxide) 400 mg PO ONETIME ONE Stop: 03/10/17 13:01 Last Admin: 03/10/17 14:16 Dose: 400 mg Morphine Sulfate (Morphine) 1 mg IVPUSH Q4H PRN PRN Reason: Other Stop: 03/07/17 18:28 Pneumococcal Polyvalent Vaccine (Pneumovax 23) 0.5 ml IM .ONCE ONE Stop: 03/06/17 20:58 - Exam General: Alert, Oriented, Cooperative, No Acute Distress HEENT: Pupils Equal, Pupils Reactive, EOMI, Mucous Membr. Moist/[place] Neck: Supple, Trachea Midline, No JVD, No Thyromegaly Lungs: Clear to Auscultation, Normal Respiratory Effort, Decreased Breath Sounds Cardiovascular: Regular Rate, Regular Rhythm GI/Abdominal Exam: Normal Bowel Sounds, Soft, Non-Tender, No Organomegaly, No Distention, No Abnormal Bruit (Male) Exam: Deferred Back Exam: Normal Inspection, Decreased Range of Motion Extremities: Normal Inspection, Normal Range of Motion, Non-Tender, No Pedal Edema, Normal Capillary Refill Skin: Warm, Dry, Intact Neurological: No New Focal Deficit Psy/Mental Status: Alert, Normal Affect, Normal Mood - Problem List Review Problem List Initiated/Reviewed/Updated: Yes - My Orders Last 24 Hours: My Active Orders 03/11/17 18:00 Piperacillin/Tazobactam [Zosyn] 4.5 gm Sodium Chloride 0.9% [Normal Saline] 100 ml IV Q8H - Assessment Assessment:: Assessment/Plan: Acute: Bibasilar PNA With Acute Cough (? Upper Airway Cough Syndrome) - Right lower perihilar Infiltrate per ED Provider - CXR report from the clinic reads: Bilateral lower lobe pneumonia - Continue IV Levaquin 750 mg daily - RT/IS/FV, Supplemental O2, Decongestant/Expectorant - Strep Pneumonia negative; Mycoplasma Ag-negative - CXR today with slight improvement noted to RLL PNA - Nasal, Throat and Nose swab for culture - Discontinue H2B, Start PPI, H1B, Steroids, Mag-Ox oral supplement Mild Transaminitis, Continues to improve - Likely from chronic ETOH Use - He was not able to quantify this - Cont to follow-Levels Decreasing - Follow up as outpatient with PCP - Counseled on ETOH use/abuse Thrombocythemia, Improving - Will monitor Weight Loss - Varying degree of weight loss - Told me 5 lbs in 3 weeks, told dietitian 6 lbs weight loss, told nursing 10 -15 lbs and told Med-student 25 lbs - Defer additional work up outpatient Resolved: Clinical Dehydration - 2/2 poor oral intake - UA spec gravity is suggestive of considerably concentrated urine - IV hydration Mild Leukocytosis - Resolved - WBC is 11.3 with 6% [facility] labs --->9.45 --->8.25 now - CRP is 22 --->12.3--->11.2 - Will monitor Hypomagnesemia - Mg 1.8 - Inadequate intake - Pharmacy to replete Chronic: HTN HLD Hx of CVA - Plan Plan:: Plan: He continues to improve, continues to have cough, fatigue and weakness Routine AM Labs Continue PT/OT/RT FV/IS as directed Honey and lemon tea or drink SW/CM for d/c planning---Plan DC back home to [facility] with family to stay with him Additional orders as above Code status: 1 LOS > 96 hours due to slower than expected course of improvement with bilateral pneumonia, need for continued tx with IV abx, continued PT/OT, lab and VS
[2017-03-11] MEDS ORDERED: Dexamethasone 4 MG/ML SDV IVPUSH SCH (13:15)
[2017-03-11] MEDS ORDERED: Magnesium Sulfate/Water 2 GM in Premix Bag 1 BAG IV ONE (13:30)
[2017-03-11] MEDS ORDERED: Dexamethasone 4 MG/ML SDV IVPUSH ONE ×2 (14:15→21:00)
--- NOTE | 2017-03-11 14:34 | CT ---
CT chest Technique: Multiple axial sections were obtained from above the dome of the diaphragm inferiorly through the pubic symphysis. Intravenous contrast not utilized. Comparison: Previous chest x-ray of 03/10/17. Findings: Consolidation is identified throughout the right lower lobe as well as lesser area of consolidation within the left lower lung. These areas of consolidation contains air bronchograms presumably representing fairly prominent bibasilar pneumonia. Upper lungs are clear. Small portion of visualized upper abdominal structures have an unremarkable noncontrast appearance. Mild coronary artery calcification is seen. Small mediastinal lymph nodes are seen which are felt to be within normal limits. No axillary adenopathy is seen. Bone window settings were reviewed which shows slight degenerative change within the spine with several minimal endplate concavities within the mid to lower thoracic spine which are believed to be old. Mild scoliosis is also seen. Impression: 1. Consolidation within a large portion of the right lower lung as well as lesser consolidation within the left lower lung. This area of consolidation shows air bronchograms. Findings are most likely due to pneumonia. 2. Other incidental findings as described above. Diagnostic code #3
[2017-03-11] MEDS: Pantoprazole 40 MG Tab.CR PO SCH (16:02)
[2017-03-11] MEDS: Levofloxacin/Dextrose 5%-Water 750 MG in Premix Bag 1 BAG IV SCH (16:02)
[2017-03-11] MEDS: Piperacillin/Tazobactam 4.5 GM in Sodium Chloride 0.9% 100 ML IV SCH (17:39)
[2017-03-11] MEDS ORDERED: Loratadine 10 MG Tab PO SCH (21:00)
[2017-03-11] MEDS: Dexamethasone 4 MG/ML SDV IVPUSH SCH (22:24)
[2017-03-11] MEDS: Magnesium Oxide 400 MG Tab PO SCH (22:24)
--- NOTE | 2017-03-11 23:33 | PCM.DCSUM1 ---
Discharge Summary - Hospital Course Brief History: This is a 72-year-old elderly white male with past medical history of hypertension and hyperlipidemia who was initially seen at his primary care's office and was found to have bilateral lower lobe pneumonia on chest x-ray. He was admitted for medical treatment. - Discharge Data Discharge Date: 03/12/17 Discharge Disposition: DC/Tfer to Acute Hospital 02 Condition: Good - Discharge Diagnosis/Problem(s) (1) Pneumonia SNOMED Code(s): 235969044 ICD Code: J18.9 - PNEUMONIA, UNSPECIFIED ORGANISM Status: Acute Priority : High Qualifiers: Pneumonia type: due to unspecified organism Laterality: bilateral Lung location: lower lobe of lung Qualified Code(s): J18.9 - Pneumonia, unspecified organism (2) Weight loss, non-intentional SNOMED Code(s): 793128771 ICD Code: R63.4 - ABNORMAL WEIGHT LOSS Status: Acute - Patient Summary/Data Operative Procedure(s) Performed: None Complications: None Consults: Consultations 03/06/17 18:30 Consult to Case Management [CONS] Routine Consult to Powder Cutting Operator [CONS] Routine Consult to Spiritual Care [CONS] Routine OT Evaluation and Treatment [CONS] Routine PT Evaluation and Treatment [CONS] Routine Respiratory Care Assess and Treatment [CONS] Routine Labs Pending at D/C: None Recommended Follow-up Testing/Procedures: None Hospital Course: Patient was primarily admitted for treatment of community-acquired pneumonia. He carried no significant past medical history related to his lungs. 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 Patient was initially seen at his primary care's office and was found to have bilateral pneumonia on plain chest x-ray. He was referred to ED for further evaluation and subsequently admitted for medical treatment. On the floor, he was put on intravenous antibiotic, bronchodilators, expectorant , decongestant and suppressant to improve his symptom. All his cultures were negative to include influenza screening, mycoplasma ag, mono-screen, and strep pneumoniae. We added additional intravenous zosyn to his levaquin as we felt he was not getting any better. But despite having chest physiotherapy and incentive spirometry, the patient was not able to cough up phlegm or sputum. We ordered a Chest CT scan and it showed a large consolidation on the right lower lobe and lesser consolidation on left lower lobe with air bronchograms. He was not started on any anti-fungal as he was not able to produce a sputum sample. At this point, we felt he was not clinically improving and had been here for 6 days now. Patient would actually benefit from bronchoscopy with biopsy. Our facility does not perform such procedure and therefore he will be shipped out to [place] for upper level of care. He will be admitted under the services of Drs. Parks, Hospitalist and Jaydon , Exhibits Coordinator. Patient will leave here via ground as soon as transplantations arrives. - Patient Instructions Diet: Usual Diet as Tolerated Activity: As Tolerated Driving: Do Not Drive Showering/Bathing: May Shower Notify Provider of: Fever, Increased Pain, Nausea and/or Vomiting Other/Special Instructions: - Transfer to [facility] for upper level of care. - He needs Bronchoscopy - Discharge Plan Home Medications: Home Meds Aspirin [Halfprin] 81 mg PO DAILY 03/06/17 [History] Lisinopril/Hydrochlorothiazide [Lisinopril-Hctz 20-25 mg Tab] 20 - 25 mg PO DAILY 03/06/17 [History] [place]legate-3 Fatty Acids/Fish Oil [Cvs Fish Oil 1,000 mg Softgel] 1,000 mg PO BID [History] amLODIPine [Norvasc] 5 mg PO DAILY 03/06/17 [History] atorvaSTATin [Lipitor] 40 mg PO QPM 03/06/17 [History] Patient Handouts: Community-Acquired Pneumonia, Adult, [id number] Referrals: Prudencio Cheney MD [Primary Care Provider] - - Discharge Summary/Plan Comment DC Time >30 min.: Yes (45 mins) Discharge Summary/Plan Comment: Transfer to [facility] for upper level of care under the services of Drs. Parks, Hospitalist and Jaydon, Exhibits Coordinator. He needs Bronchoscopy with brocho-alveolar lavage +/- biopsy - General Info Date of Service: 03/12/17 Admission Dx/Problem (Free Text: Respiratory Distress; Pneumonia Subjective Update: Follow Up I Functional Status: Reports: Pain Controlled, Tolerating Diet, Urinating. Denies : Ambulating, New Symptoms - Review of Systems General: Reports: Weakness, Fatigue. Denies: Fever, Malaise, Chills, Appetite HEENT: Reports: No Symptoms Pulmonary: Reports: Cough. Denies: Shortness of Breath, Sputum Cardiovascular: Denies: Chest Pain, Palpitations, Dyspnea on Exertion, Orthopnea Gastrointestinal: Reports: Decreased Appetite. Denies: Abdominal Pain, Nausea, Vomiting Genitourinary: Reports: No Symptoms Musculoskeletal: Reports: No Symptoms Skin: Denies: Cyanosis, Pallor, Diaphoresis, Pruritis, Rash Neurological: Reports: Weakness. Denies: Confusion, Difficulty Walking, Gait Disturbance Psychiatric: Denies: Confusion, Mood Lability, Anxiety, Agitation, Hallucinations, Suicidal Ideation Systems Review Comment: No overnight or acute issues. He feels the same. He looks about the same clinically. He still has non-productive cough. - Patient Data Vitals - Most Recent: Last Vital Signs Temp 36.4 C 03/11/17 15:27 Pulse 101 H 03/11/17 15:27 Resp 18 03/11/17 15:27 BP 92/44 L 03/11/17 15:27 Pulse Ox 93 L 03/11/17 18:00 Weight - Most Recent: 84.232 kg I&O - Last 24 hours: Intake & Output 03/11/17 03/11/17 03/12/17 14:59 22:59 06:59 Intake Total 210 750 Output Total 750 Balance 210 0 Lab Results - Last 24 hrs: Laboratory Results - last 24 hr 03/11/17 03/11/17 Range/Units 11:05 11:05 Sodium 134 L (136-145) mEq/L Potassium 3.7 (3.5-5.1) mEq/L Chloride 102 (98-107) mEq/L Carbon Dioxide 26 (21-32) mEq/L Anion Gap 9.7 (5-15) BUN 31 H (7-18) mg/dL Creatinine 1.3 (0.7-1.3) mg/dL Est Cr Clr Drug Dosing 54.73 mL/min Estimated GFR (MDRD) 55 (>60) mL/min BUN/Creatinine Ratio 23.8 H (14-18) Glucose 146 H (80-115) mg/dL Calcium 8.9 (8.5-10.1) mg/dL Magnesium 1.8 (1.8-2.4) mg/dl Total Bilirubin 0.3 (0.2-1.0) mg/dL AST 37 (15-37) U/L ALT 66 H (16-63) U/L Alkaline Phosphatase 163 H (46-116) U/L Total Protein 6.4 (6.4-8.2) g/dl Albumin 1.8 L (3.4-5.0) g/dl Globulin 4.6 gm/dL Albumin/Globulin Ratio 0.4 L (1-2) Med Orders - Current: Current Medications Acetaminophen (Tylenol) 650 mg PO Q4H PRN PRN Reason: Pain (Mild 1-3)/fever Hydrocodone Bitart/Acetaminophen ([place] 325-5 Mg) 1 tab PO Q4H PRN PRN Reason: Pain (moderate 4-6) Albuterol/Ipratropium (Duoneb 3.0-0.5 Mg/3 Ml) 3 ml NEB Q4H PRN PRN Reason: Shortness Of Breath/wheezing Last Admin: 03/11/17 14:27 Dose: 3 ml Amlodipine Besylate (Norvasc) 5 mg PO DAILY [facility] Last Admin: 03/11/17 09:16 Dose: 5 mg Aspirin (Halfprin) 81 mg PO DAILY [facility] Last Admin: 03/11/17 09:16 Dose: 81 mg Benzonatate (Tessalon Perles) 200 mg PO TID [facility] Last Admin: 03/11/17 22:25 Dose: 200 mg Bisacodyl (Dulcolax) 5 mg PO DAILY PRN PRN Reason: Constipation Dexamethasone (Dexamethasone) 4 mg IVPUSH Q12H [facility] Last Admin: 03/11/17 22:24 Dose: 4 mg Docusate Sodium (Colace) 100 mg PO BID PRN PRN Reason: Constipation Guaifenesin (Mucinex) 1,200 mg PO BID [facility] Last Admin: 03/11/17 22:24 Dose: 1,200 mg Guaifenesin/Codeine Phosphate (Robitussin Ac) 10 ml PO Q4H [facility] Last Admin: 03/11/17 22:25 Dose: 10 ml Hydralazine HCl (Apresoline) 20 mg IVPUSH Q4H PRN PRN Reason: Hypertension Hydrochlorothiazide (Hydrochlorothiazide) 25 mg PO DAILY [facility] Last Admin: 03/11/17 09:15 Dose: 25 mg Promethazine HCl 12.5 mg/ (Sodium Chloride) 50.5 mls @ 100 mls/hr IV Q6H PRN PRN Reason: Nausea/Vomiting Levofloxacin/Dextrose 750 mg/ (Premix) 150 mls @ 100 mls/hr IV Q24H [facility] Last Admin: 03/11/17 16:02 Dose: 100 mls/hr Piperacillin Sod/Tazobactam (Sod 4.5 gm/ Sodium Chloride) 100 mls @ 25 mls/hr IV Q8H [facility] Last Admin: 03/11/17 17:39 Dose: 25 mls/hr Lisinopril (Prinivil) 20 mg PO DAILY [facility] Last Admin: 03/11/17 09:16 Dose: 20 mg Loratadine (Claritin) 10 mg PO BEDTIME [facility] Last Admin: 03/11/17 22:24 Dose: 10 mg Lorazepam (Ativan) 0.5 mg IV Q6H PRN PRN Reason: Anxiety Lorazepam (Ativan) 2 mg IVPUSH Q4H PRN PRN Reason: Seizures Magnesium Oxide (Magnesium Oxide) 400 mg PO BID [facility] Last Admin: 03/11/17 22:24 Dose: 400 mg Magnesium Sulfate (Pharmacy To Dose - Magnesium Replacement) 0 dose .XX ASDIRECTED PRN PRN Reason: RX TO WATCH MAG LEVELS Metoprolol Tartrate (Lopressor) 5 mg IVPUSH Q4H PRN PRN Reason: Tachycardia Ondansetron HCl (Zofran) 4 mg IV Q6H PRN PRN Reason: Nausea/Vomiting Pantoprazole Sodium (Protonix) 40 mg PO BIDAC [facility] Last Admin: 03/11/17 16:02 Dose: 40 mg Polyethylene Glycol (Miralax) 17 gm PO DAILY PRN PRN Reason: Constipation Potassium Chloride (Pharmacy To Dose - Potassium Replacement) 0 dose .XX ASDIRECTED PRN PRN Reason: RX TO WATCH K LEVELS Rosuvastatin Calcium (Crestor) 10 mg PO DAILY [facility] Last Admin: 03/11/17 09:16 Dose: 10 mg Saccharomyces Boulardii (Florastor) 500 mg PO DAILY [facility] Last Admin: 03/11/17 09:20 Dose: 500 mg Senna/Docusate Sodium (Senna Plus) 1 tab PO BID PRN PRN Reason: Constipation Sodium Chloride (Saline Flush) 10 ml FLUSH ASDIRECTED PRN PRN Reason: Keep Vein Open Last Admin: 03/06/17 17:48 Dose: 10 ml Temazepam (Restoril) 7.5 mg PO BEDTIME PRN PRN Reason: Sleep Discontinued Medications Benzonatate (Tessalon Perles) 200 mg PO ONETIME ONE Stop: 03/07/17 16:25 Last Admin: 03/07/17 18:02 Dose: 200 mg Benzonatate (Tessalon Perles) 200 mg PO BID [facility] Last Admin: 03/09/17 09:55 Dose: 200 mg Benzonatate (Tessalon Perles) 200 mg PO TID PRN PRN Reason: Cough Dexamethasone (Dexamethasone) 4 mg IVPUSH Q12H [facility] Last Admin: 03/11/17 17:45 Dose: Not Given Dexamethasone (Dexamethasone) 4 mg IVPUSH ONETIME ONE Stop: 03/11/17 21:01 Dexamethasone (Dexamethasone) 4 mg IVPUSH ONETIME ONE Stop: 03/11/17 14:16 Last Admin: 03/11/17 14:36 Dose: 4 mg Diphtheria/Tetanus/Acell Pertussis (Adacel) 0.5 ml IM .ONCE ONE Stop: 03/06/17 20:58 Famotidine (Pepcid) 20 mg IVPUSH DAILY ONE Stop: 03/07/17 07:01 Last Admin: 03/07/17 06:54 Dose: 20 mg Famotidine (Pepcid) 20 mg IVPUSH ONETIME ONE Stop: 03/06/17 18:37 Last Admin: 03/06/17 19:26 Dose: 20 mg Famotidine (Pepcid) 20 mg PO BID [facility] Last Admin: 03/11/17 09:16 Dose: 20 mg Guaifenesin (Mucinex) 1,200 mg PO ONETIME ONE Stop: 03/07/17 16:25 Last Admin: 03/07/17 18:02 Dose: 1,200 mg Guaifenesin/Codeine Phosphate (Robitussin Ac) 5 ml PO ONETIME ONE Stop: 03/08/17 07:16 Last Admin: 03/08/17 08:39 Dose: 5 ml Guaifenesin/Codeine Phosphate (Robitussin Ac) 5 ml PO Q4H PRN PRN Reason: Cough Last Admin: 03/09/17 02:52 Dose: 5 ml Guaifenesin/Codeine Phosphate (Robitussin Ac) 5 ml PO Q4H [facility] Last Admin: 03/11/17 11:32 Dose: 5 ml Guaifenesin/Phenylephrine HCl (Robitussin Dm) 10 ml PO Q4H PRN PRN Reason: Cough Last Admin: 03/06/17 19:26 Dose: 10 ml Levofloxacin/Dextrose 750 mg/ (Premix) 150 mls @ 100 mls/hr IV ONETIME ONE Stop: 03/06/17 18:36 Last Admin: 03/06/17 17:47 Dose: 100 mls/hr Levofloxacin/Dextrose 750 mg/ (Premix) 150 mls @ 100 mls/hr IV Q24H [facility] Last Admin: 03/06/17 22:32 Dose: Not Given Magnesium Sulfate 2 gm/ Premix 50 mls @ 25 mls/hr IV ONETIME ONE Stop: 03/09/17 10:59 Last Admin: 03/09/17 11:40 Dose: 25 mls/hr Piperacillin Sod/Tazobactam (Sod 4.5 gm/ Sodium Chloride) 100 mls @ 200 mls/hr IV ONETIME ONE Stop: 03/11/17 10:44 Last Admin: 03/11/17 10:56 Dose: 200 mls/hr Magnesium Sulfate 2 gm/ Premix 50 mls @ 25 mls/hr IV ONETIME ONE Stop: 03/11/17 15:29 Last Admin: 03/11/17 13:56 Dose: 25 mls/hr Magnesium Oxide (Magnesium Oxide) 800 mg PO ONETIME ONE Stop: 03/07/17 08:01 Last Admin: 03/07/17 08:21 Dose: 800 mg Magnesium Oxide (Magnesium Oxide) 400 mg PO ONETIME ONE Stop: 03/10/17 13:01 Last Admin: 03/10/17 14:16 Dose: 400 mg Morphine Sulfate (Morphine) 1 mg IVPUSH Q4H PRN PRN Reason: Other Stop: 03/07/17 18:28 Pneumococcal Polyvalent Vaccine (Pneumovax 23) 0.5 ml IM .ONCE ONE Stop: 03/06/17 20:58 - Exam General: Reports: Cooperative, No Acute Distress HEENT: Reports: Pupils Equal, Pupils Reactive, EOMI, Mucous Membr. Moist/[place] Neck: Reports: Supple, Trachea Midline, No JVD Lungs: Reports: Normal Respiratory Effort, Decreased Breath Sounds, Wheezing Cardiovascular: Reports: Regular Rate, Regular Rhythm GI/Abdominal Exam: Normal Bowel Sounds, Soft, Non-Tender, No Organomegaly, No Distention, No Abnormal Bruit, No Mass, Pelvis Stable (Male) Exam: Deferred Rectal (Males) Exam: Deferred Back Exam: Reports: Normal Inspection, Decreased Range of Motion Extremities: Normal Inspection, Normal Range of Motion, Non-Tender, No Pedal Edema, Normal Capillary Refill Skin: Reports: Warm, Dry, Intact Neurological: Reports: No New Focal Deficit Psy/Mental Status: Reports: Alert, Normal Affect, Normal Mood *Q Meaningful Use (DIS) - VTE *Q VTE Criteria *Q: - Stroke *Q Stroke Criteria *Q: - AMI *Q AMI Criteria *Q:
[2017-03-12] MEDS: Piperacillin/Tazobactam 4.5 GM in Sodium Chloride 0.9% 100 ML IV SCH ×2 (01:37→11:26)
[2017-03-12] MEDS: Codeine/guaiFENesin 100-10 MG/5 ML Syrup 5 ML Cup PO SCH ×4 (01:40→14:11)
[2017-03-12] MEDS: Pantoprazole 40 MG Tab.CR PO SCH ×2 (05:58→15:38)
[2017-03-12] MEDS: Albuterol/Ipratropium 3.0-0.5 MG/3 ML Neb Soln NEB PRN ×2 (08:31→13:41)
[2017-03-12] MEDS: Rosuvastatin 10 MG Tab PO SCH (11:12)
[2017-03-12] MEDS: Aspirin 81 MG Tab.EC PO SCH (11:12)
[2017-03-12] MEDS: Hydrochlorothiazide 25 MG Tab PO SCH (11:12)
[2017-03-12] MEDS: guaiFENesin 600 MG Tab.ER PO SCH (11:13)
[2017-03-12] MEDS: Benzonatate 100 MG Cap PO SCH ×2 (11:13→14:11)
[2017-03-12] MEDS: Magnesium Oxide 400 MG Tab PO SCH (11:15)
[2017-03-12] MEDS: Dexamethasone 4 MG/ML SDV IVPUSH SCH (11:15)
[2017-03-12] MEDS: Saccharomyces Boulardii (Probiotic) 250 MG Cap PO SCH (11:19)
[2017-03-12] MEDS: amLODIPine 5 MG Tab PO SCH (14:13)
[2017-03-12 14:14] VITALS: BP 93/57
[2017-03-12] MEDS: Lisinopril 20 MG Tab PO SCH (14:14)
--- NOTE | 2017-03-12 19:58 | CT ---
CT chest Technique: Multiple axial sections through the chest were obtained. Intravenous contrast not utilized. Comparison: Previous chest CT performed one day earlier. Findings: Continuing consolidation is noted within the right lower lobe. Lesser consolidation is seen within the left lower lobe. Findings are stable from previous exam. No new areas of consolidation are seen. Mediastinum and hilar regions show no adenopathy. No axillary adenopathy is seen. Bone window settings show scattered degenerative endplate spurring within the spine. Several slight endplate concavities are seen within the spine which are stable. Incidental disc calcification within the lower thoracic spine is seen. Impression: 1. Continuing consolidation within both sides of the chest, worse on the right side. These findings are stable from previous exam. 2. Other incidental findings. Diagnostic code #3 Agree with preliminary report issued by [employer] ([employer] preliminary report dictated on 03/12/17, 3:03 PM Central Time)
== END 2017-03-12 15:46 | DRG 195 ==
LOC: JD.ED 16:18 → JD.MS 18:02 → UNDOADMIN 18:02 → JD.MS 18:38 → UNDODISIN 03-12 15:46
PROVIDERS: ADMIT Internal Medicine; ATTEND Internal Medicine
DX: J18.9 Pneumonia, unspecified organism (principal); R06.09 Other forms of dyspnea; Z86.73 Personal history of transient ischemic attack (TIA), and cerebral infarction without residual deficits; R74.0 Nonspecific elevation of levels of transaminase and lactic acid dehydrogenase [LDH]; D72.829 Elevated white blood cell count, unspecified; R19.7 Diarrhea, unspecified; E86.0 Dehydration; I10 Essential (primary) hypertension; E78.5 Hyperlipidemia, unspecified; D69.6 Thrombocytopenia, unspecified; E83.42 Hypomagnesemia; R63.4 Abnormal weight loss; F10.10 Alcohol abuse, uncomplicated; Z87.01 Personal history of pneumonia (recurrent); Z87.891 Personal history of nicotine dependence; Z79.82 Long term (current) use of aspirin; Z79.899 Other long term (current) drug therapy
CPT/HCPCS: 36415; 80053; 85025; 86140; 86738; 87040 ×2; 96365; 99285; J1956; J7050; 71020; 71020-26; 71250; 71250-26; 80048; 81001; 82977; 83735; 87070; 87086; 87804; 87899; 94640-76; 94664; 94667; 94668; 94761; 97110-GO; 97112-GP; 97116-GP; 97161-GP; 97165-GO; 97530-GO; 99223; 99232; 99233; 99239; 99284; A9270-GY; J1100; J2543; J3475; J7030

== ENCOUNTER 2018-10-28 17:43 | Emergency (ER) | payer MEDICARE, BC ==
[2018-10-28] MEDS ORDERED: Sodium Chloride 0.9% 10 ML Syringe FLUSH PRN (19:10)
[2018-10-28] MEDS ORDERED: Sodium Chloride 0.9% 1,000 ML IV SCH (19:15)
[2018-10-28 20:58] VITALS: BP 141/65
--- NOTE | 2018-10-28 21:08 | EDM.PDOC ---
ED HPI GENERAL MEDICAL PROBLEM - General Chief Complaint: Skin Complaint Stated Complaint: RASHED ALL OVER BODY/WEAK Time Seen by Provider: 10/28/18 18:55 Source of Information: Reports: Patient, Family History Limitations: Reports: No Limitations - History of Present Illness INITIAL COMMENTS - FREE TEXT/NARRATIVE: The patient presents with his for generalized weakness and a full body rash. The weakness has been going on for about 2 days. He also has been short of breath for weeks. He saw his provider for the shortness of breath and no real reason was found. 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 He denies hitting his head. He went on his hands and knees and could not get up for about a half an hour. He went into his house and his was concerned because he did not look well. He had generalized weakness where he could not get up without help. He took a shower and after the shower he had a generalized rash. The rash is not itchy. He has no knew medications, lotions, soaps or detergents. He has never had a rash like this before. He denies a headache, fever, chills, cough, congestion, runny nose, chest pain, abdominal pain, nausea, vomiting, diarrhea or dysuria. 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 He had them years ago. He says they were the bleed kind. I do not have records to confirm this. His is on an 81mg of aspirin daily and not other blood thinners. Onset: Gradual Duration: Day(s): (2) Location: Reports: Generalized Severity: Moderate Improves with: Reports: Immobilization Worsens with: Reports: Movement Associated Symptoms: Reports: Shortness of Breath, Weakness. Denies: Chest Pain , Cough, Fever/Chills, Headaches, Nausea/Vomiting - Related Data Allergies Allergy/AdvReac Type Severity Reaction Status Date / Time No Known Allergies Allergy Verified 10/28/18 17:57 Home Meds: Home Meds Aspirin [Halfprin] 81 mg PO DAILY 03/06/17 [History] Lisinopril/Hydrochlorothiazide [Lisinopril-Hctz 20-25 mg Tab] 20 - 25 mg PO DAILY 03/06/17 [History] [place]-3 Fatty Acids/Fish Oil [Cvs Fish Oil 1,000 mg Softgel] 1,000 mg PO BID [History] amLODIPine [Norvasc] 5 mg PO DAILY 03/06/17 [History] atorvaSTATin [Lipitor] 40 mg PO QPM 03/06/17 [History] Past Medical History HEENT History: Reports: Impaired Vision Other HEENT History: glasses Cardiovascular History: Reports: High Cholesterol, Hypertension Respiratory History: Reports: Pneumonia, Recurrent Other Respiratory History: hay fever as a child. Musculoskeletal History: Reports: Other (See Below) Other Musculoskeletal History: left foot surgery x 4, weakness Other Neuro History: 3-5 years ago - concussions caused neurological problems. Unsure how he got concussions. 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 Dermatologic History: Reports: Other (See Below) Other Dermatologic History: rash - Past Surgical History HEENT Surgical History: Reports: None, Tonsillectomy Social & Family History - Family History Cardiac: Reports: [place] - Tobacco Use Smoking Status *Q: Former Smoker Used Tobacco, but Quit: Yes Month/Year Tobacco Last Used: - Caffeine Use Caffeine Use: Reports: Coffee, Tea Other Caffeine Use: daily - Alcohol Use Days Per Week of Alcohol Use: 4 Number of Drinks Per Day: 2 Total Drinks Per Week: 8 - Recreational Drug Use Recreational Drug Use: No ED ROS GENERAL - Review of Systems Review Of Systems: See Below Constitutional: Reports: Malaise, Weakness, Fatigue HEENT: Reports: No Symptoms Respiratory: Reports: Shortness of Breath. Denies: Cough Cardiovascular: Reports: No Symptoms Endocrine: Reports: No Symptoms GI/Abdominal: Reports: No Symptoms : Reports: No Symptoms Musculoskeletal: Reports: No Symptoms ED EXAM, SKIN/RASH Exam: See Below Exam Limited By: No Limitations General Appearance: Alert, No Apparent Distress Ears: Normal External Exam Nose: Normal Inspection Head: Atraumatic, Normocephalic Neck: Normal Inspection, Supple, Non-Tender Respiratory/Chest: No Respiratory Distress, Wheezing (Slight wheeze) Cardiovascular: Regular Rate, Rhythm, No Edema, No Murmur GI/Abdominal: Soft, Non-Tender, No Organomegaly, No Mass Back Exam: Normal Inspection Extremities: Normal Inspection Neurological: Alert, Oriented, No Motor/Sensory Deficits EKG INTERPRETATION EKG Date: 10/28/18 Time: 19:24 Rhythm: NSR Rate (Beats/Min): 94 [place]: Normal P-Wave: Present QRS: Normal ST-T: Normal QT: Normal Course - Vital Signs Last Recorded V/S: Last Vital Signs Temp 99.3 F 10/28/18 20:58 Pulse 89 10/28/18 20:58 Resp 15 10/28/18 20:58 BP 141/65 H 10/28/18 20:58 Pulse Ox 100 10/28/18 20:58 - Orders/Labs/Meds Orders: Active Orders 24 hr Category Date Time Status Cardiac Monitoring [RC] . DIRECTED Care 10/28/18 19:10 Active EKG Documentation Completion [RC] STAT Care 10/28/18 19:11 Active Peripheral IV Care [RC] . DIRECTED Care 10/28/18 19:11 Active Chest 1V Frontal [CR] Stat Exams 10/28/18 19:11 Taken Head wo Cont [CT] Stat Exams 10/28/18 19:11 Taken UA W/MICROSCOPIC [URIN] Stat Lab 10/28/18 19:10 Ordered Sodium Chloride 0.9% [Normal Saline] 1,000 ml Med 10/28/18 19:15 Active IV ASDIRECTED Sodium Chloride 0.9% [Saline Flush] Med 10/28/18 19:10 Active 10 ml FLUSH ASDIRECTED PRN Peripheral IV Insertion Adult [OM.PC] Stat Oth 10/28/18 19:10 Ordered Medication Orders Sodium Chloride (Normal Saline) 1,000 mls @ 125 mls/hr IV ASDIRECTED GEORGE Last Admin: 10/28/18 19:27 Dose: 125 mls/hr Sodium Chloride (Saline Flush) 10 ml FLUSH ASDIRECTED PRN PRN Reason: Keep Vein Open Last Admin: 10/28/18 19:28 Dose: 10 ml Labs: Laboratory Tests 10/28/18 10/28/18 10/28/18 Range/Units 19:15 19:15 19:15 WBC 7.37 (4.23-9.07) K/mm3 RBC 4.94 (4.63-6.08) M/mm3 Hgb 15.1 D (13.7-17.5) gm/L Hct 42.7 (40.1-51.0) % MCV 86.4 (79.0-92.2) fl MCH 30.6 (25.7-32.2) pg MCHC 35.4 (32.2-35.5) g/dl RDW Std Deviation 41.4 (35.1-43.9) fL Plt Count 220 (163-337) K/mm3 MPV 10.2 (9.4-12.3) fl Neut % (Auto) 78.3 H (34.0-67.9) % Lymph % (Auto) 9.5 L (21.8-53.1) % Johnston % (Auto) 8.0 (5.3-12.2) % Eos % (Auto) 3.9 (0.8-7.0) Baso % (Auto) 0.3 (0.1-1.2) % Neut # (Auto) 5.77 H (1.78-5.38) K/mm3 Lymph # (Auto) 0.70 L (1.32-3.57) K/mm3 Johnston # (Auto) 0.59 (0.30-0.82) K/mm3 Eos # (Auto) 0.29 (0.04-0.54) K/mm3 Baso # (Auto) 0.02 (0.01-0.08) K/mm3 Manual Slide Review Abnormal smear PT (9.5-12.1) SECONDS INR APTT (24-31) SECONDS Sodium 132 L (136-145) mEq/L Potassium 4.1 (3.5-5.1) mEq/L Chloride 97 L (98-107) mEq/L Carbon Dioxide 24 (21-32) mEq/L Anion Gap 15.1 H (5-15) BUN 30 H (7-18) mg/dL Creatinine 1.4 H (0.7-1.3) mg/dL Est Cr Clr Drug Dosing 49.97 mL/min Estimated GFR (MDRD) 50 (>60) mL/min BUN/Creatinine Ratio 21.4 H (14-18) Glucose 115 (83-115) mg/dL Calcium 9.1 (8.5-10.1) mg/dL Total Bilirubin 0.6 (0.2-1.0) mg/dL AST 96 H (15-37) U/L ALT 136 H (16-63) U/L Alkaline Phosphatase 100 (46-116) U/L Troponin I < 0.017 (0.00-0.056) ng/mL NT-Pro-B Natriuret Pep 73 (0-125) pg/mL Total Protein 7.3 (6.4-8.2) g/dl Albumin 3.7 (3.4-5.0) g/dl Globulin 3.6 gm/dL Albumin/Globulin Ratio 1.0 (1-2) 10/28/18 Range/Units 19:43 WBC (4.23-9.07) K/mm3 RBC (4.63-6.08) M/mm3 Hgb (13.7-17.5) gm/L Hct (40.1-51.0) % MCV (79.0-92.2) fl MCH (25.7-32.2) pg MCHC (32.2-35.5) g/dl RDW Std Deviation (35.1-43.9) fL Plt Count (163-337) K/mm3 MPV (9.4-12.3) fl Neut % (Auto) (34.0-67.9) % Lymph % (Auto) (21.8-53.1) % Johnston % (Auto) (5.3-12.2) % Eos % (Auto) (0.8-7.0) Baso % (Auto) (0.1-1.2) % Neut # (Auto) (1.78-5.38) K/mm3 Lymph # (Auto) (1.32-3.57) K/mm3 Johnston # (Auto) (0.30-0.82) K/mm3 Eos # (Auto) (0.04-0.54) K/mm3 Baso # (Auto) (0.01-0.08) K/mm3 Manual Slide Review PT 12.0 (9.5-12.1) SECONDS INR 1.10 APTT 26 (24-31) SECONDS Sodium (136-145) mEq/L Potassium (3.5-5.1) mEq/L Chloride (98-107) mEq/L Carbon Dioxide (21-32) mEq/L Anion Gap (5-15) BUN (7-18) mg/dL Creatinine (0.7-1.3) mg/dL Est Cr Clr Drug Dosing mL/min Estimated GFR (MDRD) (>60) mL/min BUN/Creatinine Ratio (14-18) Glucose (83-115) mg/dL Calcium (8.5-10.1) mg/dL Total Bilirubin (0.2-1.0) mg/dL AST (15-37) U/L ALT (16-63) U/L Alkaline Phosphatase (46-116) U/L Troponin I (0.00-0.056) ng/mL NT-Pro-B Natriuret Pep (0-125) pg/mL Total Protein (6.4-8.2) g/dl Albumin (3.4-5.0) g/dl Globulin gm/dL Albumin/Globulin Ratio (1-2) Meds: Medications Generic Name Dose Route Start Last Admin Trade Name Freq PRN Reason Stop Dose Admin Sodium Chloride 1,000 mls @ 125 mls/hr 10/28/18 19:15 10/28/18 19:27 Normal Saline IV 125 mls/hr ASDIRECTED GEORGE Administration Sodium Chloride 10 ml 10/28/18 19:10 10/28/18 19:28 Saline Flush FLUSH 10 ml ASDIRECTED PRN Administration Keep Vein Open - Re-Assessments/Exams Free Text/Narrative Re-Assessment/Exam: 10/28/18 21:35 I ordered an IV NS at 125mL/hr, labs, CXR, EKG, CT of the head. His EKG shows a NSR with no acute changes. His CXR shows cardiomegaly. His CBC looks good. His PT and INR is normal. His Na was low at 132. His creatinine is elevated at 1.4. His AST is elevated at 96. ALT is elevated at 136. His troponin is negative. His CT shows in the left thalamus there is a 14 X 6 mm area of increased density which is not specific and a small opacity hemorrhage is not excluded. Consider MRI scan for further workup and/or followup CT scan in 24 hours. My hospitalist is not comfortable keeping him here. I called [facility] and talked with Dr Magana the neurologist construction analyst and he did recommend a repeat scan and he felt he could stay here but my hospitalist was not comfortable. I also talked to Dr Hall the hospitalist and she accepted the patient. Departure - Departure Time of Disposition: 22:00 Disposition: DC/Tfer to Acute Hospital 02 Condition: Fair Clinical Impression: Nontraumatic thalamic hemorrhage, Generalized weakness, Rash - Discharge Information Referrals: Prudencio Cheney MD [Primary Care Provider] - Forms: ED Department Discharge - My Orders Last 24 Hours: My Active Orders 10/28/18 19:10 Cardiac Monitoring [RC] . DIRECTED UA W/MICROSCOPIC [URIN] Stat Sodium Chloride 0.9% [Saline Flush] 10 ml FLUSH ASDIRECTED PRN Peripheral IV Insertion Adult [OM.PC] Stat 10/28/18 19:11 EKG Documentation Completion [RC] STAT Peripheral IV Care [RC] . DIRECTED Chest 1V Frontal [CR] Stat Head wo Cont [CT] Stat 10/28/18 19:15 Sodium Chloride 0.9% [Normal Saline] 1,000 ml IV ASDIRECTED - Assessment/Plan Last 24 Hours: My Active Orders 10/28/18 19:10 Cardiac Monitoring [RC] . DIRECTED UA W/MICROSCOPIC [URIN] Stat Sodium Chloride 0.9% [Saline Flush] 10 ml FLUSH ASDIRECTED PRN Peripheral IV Insertion Adult [OM.PC] Stat 10/28/18 19:11 EKG Documentation Completion [RC] STAT Peripheral IV Care [RC] . DIRECTED Chest 1V Frontal [CR] Stat Head wo Cont [CT] Stat 10/28/18 19:15 Sodium Chloride 0.9% [Normal Saline] 1,000 ml IV ASDIRECTED
--- NOTE | 2018-10-29 06:33 | CT ---
Head CT Technique: Multiple axial sections through the brain were obtained. Intravenous contrast was not utilized. Comparison: No prior intracranial imaging. Findings: Increased density noted within the left thalamus both anteriorly and posteriorly. This is felt compatible with areas of basal ganglia hemorrhage. Diminished density is noted within portions of the periventricular and subcortical white matter compatible with small vessel ischemic demyelination change. Minimal low density finding is noted within the right basal ganglia believed to represent small calcification. No midline shift or mass effect is seen. Ventricles are mildly dilated. Small retention cyst partially seen within the left maxillary sinus. No acute calvarial abnormality is seen. Impression: 1. Findings suspicious for small area of hemorrhage within left thalamus as described above. 2. Senescent change as noted above. 3. Incidental sinus finding. Diagnostic code #5 I agree with preliminary report from [facility], finalized on 10/28/18, 9:10 PM Central Time
--- NOTE | 2018-10-29 06:33 | CR ---
Chest: Frontal view of the chest was obtained. Comparison: Prior chest x-ray of 02/28/[address] study of 03/12/17. Heart size and mediastinum are normal. Previously noted parenchymal densities within both lung bases are no longer seen and appear to have resolved from previous exam. Bony structures are grossly intact. Impression: 1. Nothing acute is appreciated on portable chest x-ray. Diagnostic code #1
== END 2018-10-28 22:35 ==
LOC: JD.ED 17:43
DX: I61.8 Other nontraumatic intracerebral hemorrhage (principal); I10 Essential (primary) hypertension; E78.00 Pure hypercholesterolemia, unspecified; Z87.891 Personal history of nicotine dependence; Z79.82 Long term (current) use of aspirin; Z79.899 Other long term (current) drug therapy
CPT/HCPCS: 36415; 70450; 71045; 80053; 81001; 83880; 84484; 85025; 85610; 85730; 93005; 96360; 96361; 99285; J7040; 93010; 99284

== ENCOUNTER 2025-05-05 20:24 | Emergency (ER) | payer MEDICARE, BC ==
[2025-05-05 20:45] VITALS: BP 159/75; PULSE 85
[2025-05-05 21:02] LABS: BASOPHILS ABSOLUTE AUTO 0.0 K/mm3 (0.0-0.2); BASOPHILS PERCENT AUTO 0.3 % (0.0-1.0); EOSINOPHILS ABSOLUTE AUTO 0.1 K/mm3 (0.0-0.4); EOSINOPHILS PERCENT AUTO 1.3 % (0.0-6.0); IMMATURE GRAN ABSOLUTE AUTO 0.07 K/mm3 (0.00-0.05); IMMATURE GRAN PERCENT AUTO 0.7 % (0.0-0.4); LYMPHOCYTES ABSOLUTE AUTO 1.1 K/mm3 (1.0-4.8); LYMPHOCYTES PERCENT AUTO 10.9 % (24.0-44.0); MEAN PLATELET VOLUME 9.3 fl (9.4-12.4); MONOCYTES ABSOLUTE AUTO 0.6 K/mm3 (0.0-0.8); MONOCYTES PERCENT AUTO 6.0 % (0.0-8.0); NEUTROPHILS ABSOLUTE AUTO 8.0 K/mm3 (1.8-7.7); NEUTROPHILS PERCENT AUTO 80.8 % (41.0-71.0); NRBC ABSOLUTE 0.00 (0.00-0.02); NRBC PERCENT 0.0 % (0.0-0.2); PLATELET COUNT,PLT 422 K/mm3 (150-400); RED BLOOD CELL COUNT 5.34 M/mm3 (4.52-5.90); WHITE BLOOD CELL COUNT,WBC 9.95 K/mm3 (3.9-11.3)
[2025-05-05 21:26] LABS: A/G RATIO 0.7 (1-2); ALANINE AMINOTRANSFERASE,ALT 678.0 U/L (16-63); ASPARTATE AMNIOTRANSFERASE,AST 545.0 U/L (15-37); BILIRUBIN TOTAL 3.9 mg/dL (0.2-1.0); BLOOD UREA NITROGEN,BUN 22.0 mg/dL (7-18); CARBON DIOXIDE,CO2 24.0 mEq/L (21-32); CHLORIDE,CL 104.0 mEq/L (98-107); CREATINE KINASE,CK 71.0 U/L (39-308); CREATININE 1.3 mg/dL (0.7-1.3); EST CRCL DRUG DOSING (CG) 48.35 mL/min; ESTIMATED GFR 56.0 mL/min (>60); GLUCOSE RANDOM 163.0 mg/dL (70-99); PROTEIN TOTAL,TP 7.1 g/dl (6.4-8.2); SODIUM,NA 140.0 mEq/L (136-145); TROPONIN I HIGH SENSITIVITY 6.0 pg/mL (<=76)
[2025-05-05 21:27] LABS: POTASSIUM,K 3.5 mEq/L (3.5-5.1)
== END 2025-05-06 01:46 ==
LOC: JD.ED 20:24
DX: K80.50 Calculus of bile duct without cholangitis or cholecystitis without obstruction (principal); I10 Essential (primary) hypertension; E78.00 Pure hypercholesterolemia, unspecified; Z91.09 Other allergy status, other than to drugs and biological substances; Z79.82 Long term (current) use of aspirin; Z79.899 Other long term (current) drug therapy
CPT/HCPCS: 36415; 76705; 80053; 82550; 83690; 83735; 84484; 85025; 86140; 93005; 96365; 99285; J2543; 93010